=== PATIENT | female | born 1950 | race Caucasian/White ===

== ENCOUNTER 2016-08-30 14:26 | Emergency (ER) | payer MEDICARE, SELFPAY ==
[2016-08-30 14:32] VITALS: BP 144/74
[2016-08-30] MEDS ORDERED: Sodium Chloride 0.9% 10 ML Syringe FLUSH PRN (14:43)
--- NOTE | 2016-08-30 14:52 | EDM.PDOC ---
ED HPI NEURO - General Chief Complaint: Neurological Problem Stated Complaint: SYNCOPE Time Seen by Provider: 08/30/16 14:29 Source of Information: Reports: Patient History Limitations: Reports: No limitations - History of Present Illness INITIAL COMMENTS - FREE TEXT/NARRATIVE: Patient present for evaluation treatment of dizziness and lightheadedness. Patient reports that she was walking down a hallway while at work which became very dizzy, lightheaded and felt very weak in her legs. She states that she did not pass out but felt that she was going to. She reports tunnel vision. She reports several similar episodes the last couple weeks. She states that it is increasing in severity. She reports lightheadedness when standing for long periods of time and walking. She reports that resolves upon sitting. Patient reports that she saw primary care provider about a week and half ago for an upper respiratory infection. She was not placed on antibiotics. She said that she was coughing but this has since improved. She has been using Mucinex for her URI symptoms. She reports that her blood sugar prior to arrival was 288. She is a diabetic on an insulin pump. Her bedside blood sugar today was 177. She reports additional symptoms of shortness of breath with exertion and right leg swelling. She states that she's had swelling to her right leg since having a partial toe amputation several months ago. She denies any chest pain, shortness of breath, nausea, vomiting, tinnitus, ear pain or syncope. - Related Data Allergies/ADRs: Allergies Allergy/AdvReac Type Severity Reaction Status Date / Time erythromycin base Allergy Other Verified 08/30/16 14:28 Home Meds: Home Meds Aspirin [Low Dose Aspirin EC] 162 mg PO DAILY 08/30/16 [History] Furosemide [Furosemide] 20 mg PO DAILY 08/30/16 [History] Insulin Pump. 08/30/16 [History] Levothyroxine. 0.15 mg PO DAILY 08/30/16 [History] Losartan [Cozaar] 50 mg PO DAILY 08/30/16 [History] Pentoxifylline [Pentoxifylline] 400 mg PO DAILY 08/30/16 [History] Sennosides/Docusate Sodium [Senna-Docusate Sodium] 2 tab PO DAILY 08/30/16 [ History] Simvastatin [Simvastatin] 20 mg PO DAILY 08/30/16 [History] ED ROS GENERAL - Review of Systems Review Of Systems: See Below Constitutional: Reports: weakness. Denies: fever, chills HEENT: Reports: Other (denies tinnitus). Denies: Ear pain, Hearing loss Respiratory: Denies: shortness of breath Cardiovascular: Reports: Claudication, Dyspnea on exertion, Edema (left lower leg), Lightheadedness. Denies: Chest pain, Syncope GI/Abdominal: Denies: Abdominal pain, Nausea, Vomiting Neurological: Reports: dizziness. Denies: syncope ED EXAM, NEURO - Physical Exam Exam: See Below Exam Limited By: No limitations General Appearance: alert, WD/WN, no apparent distress Ears: normal external exam, normal canal, hearing grossly normal, normal TMs Nose: normal inspection Throat/Mouth: Normal voice, No airway compromise Neck: normal inspection, supple, non-tender. No: carotid bruit Respiratory/Chest: no respiratory distress, lungs clear, normal breath sounds Cardiovascular: normal peripheral pulses, regular rate, rhythm, no murmur GI/Abdominal: soft, non tender Neurological: alert, normal mood/affect Psychiatric: normal affect, normal mood Skin Exam: Warm, Dry, Normal color EKG INTERPRETATION EKG Date: 08/30/16 Time: 14:50 Rhythm: NSR Rate (beats/min): 77 [place]: normal P-wave: present QRS: normal ST-T: normal QT: normal Comparison: NA - no prior EKG EKG Interpretation Comments: NSR at [address] segment changes. Reviewed by myself and Dr. Lyon. Course - Vital Signs Last Recorded V/S: Last Vital Signs Temp 36.1 C 08/30/16 19:25 Pulse 75 08/30/16 19:25 Resp 18 08/30/16 19:25 BP 144/74 H 08/30/16 14:28 Pulse Ox 99 08/30/16 19:25 Orthostatic Blood Pressure [ 97/54 Standing] Orthostatic Blood Pressure [ 144/65 Supine] - Orders/Labs/Meds Orders: Active Orders 24 hr Category Date Time Status Cardiac Monitoring [RC] . DIRECTED Care 08/30/16 14:47 Active EKG 12 Lead [EKG Documentation Completion] [RC] STAT Care 08/30/16 14:43 Active Orthostatic Vital Signs [RC] ASDIRECTED Care 08/30/16 14:43 Active Peripheral IV Care [RC] . DIRECTED Care 08/30/16 14:43 Active Chest 2V [CR] Stat Exams 08/30/16 14:43 Taken Peripheral IV Insertion Adult [OM.PC] Routine Oth 08/30/16 14:43 Ordered Labs: Laboratory Tests 08/30/16 08/30/16 08/30/16 Range/Units 14:30 14:40 14:40 WBC 9.00 (3.98-10.04) K/mm3 RBC 3.81 L (3.98-5.22) M/mm3 Hgb 11.5 (11.2-15.7) gm/L Hct 34.8 (34.1-44.9) % MCV 91.3 (79.4-94.8) fl MCH 30.2 (25.6-32.2) pg MCHC 33.0 (32.2-35.5) g/dl RDW Std Deviation 42.2 (36.4-46.3) fL Plt Count 282 (182-369) K/mm3 MPV 10.8 (9.4-12.3) fl Neut % (Auto) 61.7 (34.0-71.1) % Lymph % (Auto) 27.1 (19.3-51.7) % [place] % (Auto) 7.3 (4.7-12.5) % Eos % (Auto) 3.2 (0.7-5.8) Baso % (Auto) 0.6 (0.1-1.2) % Neut # 5.55 (1.56-6.13) K/mm3 Lymph # 2.44 (1.18-3.74) K/mm3 Dillon # 0.66 H (0.24-0.36) K/mm3 Eos # 0.29 (0.04-0.36) K/mm3 Baso # 0.05 (0.01-0.08) K/mm3 D-Dimer, Quantitative 0.91 H (0.19-0.59) mg/L Sodium (136-145) mEq/L Potassium (3.5-5.1) mEq/L Chloride (98-107) mEq/L Carbon Dioxide (21-32) mEq/L Anion Gap (5-15) BUN (7-18) mg/dL Creatinine (0.55-1.02) mg/dL Est Cr Clr Drug Dosing mL/min Estimated GFR (MDRD) (>60) mL/min BUN/Creatinine Ratio (14-18) Glucose (80-115) mg/dL POC Glucose 177 H (80-115) mg/dL Calcium (8.5-10.1) mg/dL Total Bilirubin (0.2-1.0) mg/dL AST (15-37) U/L ALT (14-59) U/L Alkaline Phosphatase (46-116) U/L CK-MB (CK-2) (0-3.6) ng/ml Troponin I (0.00-0.056) ng/mL C-Reactive Protein (<1.0) mg/dL B-Natriuretic Peptide (0-100) pg/mL Total Protein (6.4-8.2) g/dl Albumin (3.4-5.0) g/dl Globulin gm/dL Albumin/Globulin Ratio (1-2) Urine Color (Yellow) Urine Appearance (Clear) Urine pH (5.0-8.0) Ur Specific [place] (1.005-1.030) Urine Protein (Negative) Urine Glucose (UA) (Negative) Urine Ketones (Negative) Urine Occult Blood (Negative) Urine Nitrite (Negative) Urine Bilirubin (Negative) Urine Urobilinogen (0.2-1.0) Ur Leukocyte Esterase (Negative) Urine RBC (0-5) /hpf Urine WBC (0-5) /hpf Ur Squamous Epith Cells (0-5) /hpf Urine Bacteria (FEW) /hpf Hyaline Casts (0-5) /lpf Urine Mucus (FEW) /hpf 08/30/16 08/30/16 08/30/16 Range/Units 14:40 14:40 16:49 WBC (3.98-10.04) K/mm3 RBC (3.98-5.22) M/mm3 Hgb (11.2-15.7) gm/L Hct (34.1-44.9) % MCV (79.4-94.8) fl MCH (25.6-32.2) pg MCHC (32.2-35.5) g/dl RDW Std Deviation (36.4-46.3) fL Plt Count (182-369) K/mm3 MPV (9.4-12.3) fl Neut % (Auto) (34.0-71.1) % Lymph % (Auto) (19.3-51.7) % Dillon % (Auto) (4.7-12.5) % Eos % (Auto) (0.7-5.8) Baso % (Auto) (0.1-1.2) % Neut # (1.56-6.13) K/mm3 Lymph # (1.18-3.74) K/mm3 Dillon # (0.24-0.36) K/mm3 Eos # (0.04-0.36) K/mm3 Baso # (0.01-0.08) K/mm3 D-Dimer, Quantitative (0.19-0.59) mg/L Sodium 136 (136-145) mEq/L Potassium 4.2 (3.5-5.1) mEq/L Chloride 100 (98-107) mEq/L Carbon Dioxide 25 (21-32) mEq/L Anion Gap 15.2 H (5-15) BUN 36 H (7-18) mg/dL Creatinine 1.6 H (0.55-1.02) mg/dL Est Cr Clr Drug Dosing 35.36 mL/min Estimated GFR (MDRD) 32 (>60) mL/min BUN/Creatinine Ratio 22.5 H (14-18) Glucose 169 H (80-115) mg/dL POC Glucose (80-115) mg/dL Calcium 9.3 (8.5-10.1) mg/dL Total Bilirubin 0.2 (0.2-1.0) mg/dL AST 14 L (15-37) U/L ALT 21 (14-59) U/L Alkaline Phosphatase 160 H (46-116) U/L CK-MB (CK-2) 0.5 (0-3.6) ng/ml Troponin I < 0.017 (0.00-0.056) ng/mL C-Reactive Protein < 0.2 (<1.0) mg/dL B-Natriuretic Peptide < 15 (0-100) pg/mL Total Protein 7.4 (6.4-8.2) g/dl Albumin 3.4 (3.4-5.0) g/dl Globulin 4.0 gm/dL Albumin/Globulin Ratio 0.9 L (1-2) Urine Color Yellow (Yellow) Urine Appearance Clear (Clear) Urine pH 6.0 (5.0-8.0) Ur Specific [place] 1.015 (1.005-1.030) Urine Protein Negative (Negative) Urine Glucose (UA) Trace H (Negative) Urine Ketones Negative (Negative) Urine Occult Blood Negative (Negative) Urine Nitrite Negative (Negative) Urine Bilirubin Negative (Negative) Urine Urobilinogen 0.2 (0.2-1.0) Ur Leukocyte Esterase Negative (Negative) Urine RBC Not seen (0-5) /hpf Urine WBC 0-5 (0-5) /hpf Ur Squamous Epith Cells 0-5 (0-5) /hpf Urine Bacteria Rare (FEW) /hpf Hyaline Casts 0-5 (0-5) /lpf Urine Mucus Not seen (FEW) /hpf 08/30/16 Range/Units 18:17 WBC (3.98-10.04) K/mm3 RBC (3.98-5.22) M/mm3 Hgb (11.2-15.7) gm/L Hct (34.1-44.9) % MCV (79.4-94.8) fl MCH (25.6-32.2) pg MCHC (32.2-35.5) g/dl RDW Std Deviation (36.4-46.3) fL Plt Count (182-369) K/mm3 MPV (9.4-12.3) fl Neut % (Auto) (34.0-71.1) % Lymph % (Auto) (19.3-51.7) % [place] % (Auto) (4.7-12.5) % Eos % (Auto) (0.7-5.8) Baso % (Auto) (0.1-1.2) % Neut # (1.56-6.13) K/mm3 Lymph # (1.18-3.74) K/mm3 Dillon # (0.24-0.36) K/mm3 Eos # (0.04-0.36) K/mm3 Baso # (0.01-0.08) K/mm3 D-Dimer, Quantitative (0.19-0.59) mg/L Sodium (136-145) mEq/L Potassium (3.5-5.1) mEq/L Chloride (98-107) mEq/L Carbon Dioxide (21-32) mEq/L Anion Gap (5-15) BUN (7-18) mg/dL Creatinine (0.55-1.02) mg/dL Est Cr Clr Drug Dosing mL/min Estimated GFR (MDRD) (>60) mL/min BUN/Creatinine Ratio (14-18) Glucose (80-115) mg/dL POC Glucose (80-115) mg/dL Calcium (8.5-10.1) mg/dL Total Bilirubin (0.2-1.0) mg/dL AST (15-37) U/L ALT (14-59) U/L Alkaline Phosphatase (46-116) U/L CK-MB (CK-2) (0-3.6) ng/ml Troponin I < 0.017 (0.00-0.056) ng/mL C-Reactive Protein (<1.0) mg/dL B-Natriuretic Peptide (0-100) pg/mL Total Protein (6.4-8.2) g/dl Albumin (3.4-5.0) g/dl Globulin gm/dL Albumin/Globulin Ratio (1-2) Urine Color (Yellow) Urine Appearance (Clear) Urine pH (5.0-8.0) Ur Specific [place] (1.005-1.030) Urine Protein (Negative) Urine Glucose (UA) (Negative) Urine Ketones (Negative) Urine Occult Blood (Negative) Urine Nitrite (Negative) Urine Bilirubin (Negative) Urine Urobilinogen (0.2-1.0) Ur Leukocyte Esterase (Negative) Urine RBC (0-5) /hpf Urine WBC (0-5) /hpf Ur Squamous Epith Cells (0-5) /hpf Urine Bacteria (FEW) /hpf Hyaline Casts (0-5) /lpf Urine Mucus (FEW) /hpf Meds: Medications Discontinued Medications Generic Name Dose Route Start Last Admin Trade Name Freq PRN Reason Stop Dose Admin Sodium Chloride 1,000 mls @ 999 mls/hr 08/30/16 15:20 08/30/16 15:35 Normal Saline IV 08/30/16 16:20 999 mls/hr ONETIME ONE Administration Sodium Chloride 100 mls @ 60 mls/hr 08/30/16 16:00 08/30/16 16:34 Normal Saline IV 60 mls/hr ASDIRECTED SHERYL Administration Sodium Chloride 1,000 mls @ 999 mls/hr 08/30/16 17:12 08/30/16 17:22 Normal Saline IV 08/30/16 18:12 999 mls/hr ONETIME ONE Administration Iopamidol 50 ml 08/30/16 15:55 08/30/16 16:34 Isovue-370 (76%) IVPUSH 08/30/16 15:56 50 ml ONETIME ONE Administration Iopamidol 100 ml 08/30/16 15:55 08/30/16 16:34 Isovue-370 (76%) IVPUSH 08/30/16 15:56 100 ml ONETIME ONE Administration Sodium Chloride 10 ml 08/30/16 14:43 08/30/16 15:02 Saline Flush FLUSH 10 ml ASDIRECTED PRN Administration Keep Vein Open Sodium Chloride 10 ml 08/30/16 15:55 08/30/16 16:34 Saline Flush FLUSH 08/30/16 15:56 10 ml ONETIME ONE Administration - Radiology Interpretation Free Text/Narrative:: Chest xray reviewed by myself and Dr. Lyon shows no acute intrathoracic process. CT pulmonary angiogram impression per Dr. Shepard: 1. No findings of PE. 2. Groundglass appearance within both lungs most likely representing subsegmetnal atelectasis although pneumonitis can cause a similar appearance. 3. Other incidental findings as described. CT Results Date: 08/30/16 - Re-Assessments/Exams Free Text/Narrative Re-Assessment/Exam: 08/30/16 17:10 Labs returned. WBC is 9.00, hgb is 11.5 and plts are 282 Sodium is 136, potassium is 4.2 and chloride is 100. Anion gap is 15.2. Glucose is 169 Trop is within normal limits at <0.017 D-dimer elevated at 0.91 - CT pulmonary angiogram ordered to further evaluate. CRP is <0.2 BNP is <15 CKMB is 0.5 Reviewed labs, ekg and imaging with the patient. Will repeat trop and get a 2nd liter NS. continue to monitor. 08/30/16 19:07 Repeat trop is negative at <0.017. Patient is feeling improved after 2 L NS. Reports she has been treated for dehydration before with fluids. Will discharge home at this time. Discharge instructions as documented. Departure - Departure Time of Disposition: 19:07 Disposition: Home, Self-Care 01 Condition: good Clinical Impression: Orthostatic hypotension, Dehydration, mild Instructions: Orthostatic Hypotension, Dehydration, Adult, [id number] Referrals: PCP,Unknown [Ordering Only Provider] - Forms: ED Department Discharge Additional Instructions: Hold lasix tonight. Rest and drink plenty of fluids. Follow-up with PCP this week or next week. Take your time standing, sit or lay down if you are feeling lightheaded of dizzy. Please return to the ER should symptoms change or worsen. - My Orders Last 24 Hours: My Active Orders 08/30/16 14:43 EKG 12 Lead [EKG Documentation Completion] [RC] STAT Orthostatic Vital Signs [RC] ASDIRECTED Peripheral IV Care [RC] . DIRECTED Chest 2V [CR] Stat Peripheral IV Insertion Adult [OM.PC] Routine 08/30/16 14:47 Cardiac Monitoring [RC] . DIRECTED - Assessment/Plan Last 24 Hours: My Active Orders 08/30/16 14:43 EKG 12 Lead [EKG Documentation Completion] [RC] STAT Orthostatic Vital Signs [RC] ASDIRECTED Peripheral IV Care [RC] . DIRECTED Chest 2V [CR] Stat Peripheral IV Insertion Adult [OM.PC] Routine 08/30/16 14:47 Cardiac Monitoring [RC] . DIRECTED
[2016-08-30] MEDS: Sodium Chloride 0.9% 1,000 ML IV ONE ×2 (15:34→15:35)
[2016-08-30] MEDS ORDERED: Sodium Chloride 0.9% 10 ML Syringe FLUSH ONE (15:55)
[2016-08-30] MEDS ORDERED: Iopamidol 755 Mg/ML 100 ML Bottle IVPUSH ONE (15:55)
[2016-08-30] MEDS ORDERED: Iopamidol 755 MG/ML 50 ML Bottle IVPUSH ONE (15:55)
[2016-08-30] MEDS ORDERED: Sodium Chloride 0.9% 100 ML IV SCH (16:00)
--- NOTE | 2016-08-30 16:57 | CT ---
CT chest Technique: Multiple axial sections through the chest were obtained. Intravenous contrast was utilized. Study performed as a pulmonary angiogram protocol. Comparison: No previous chest CT, previous chest x-ray performed earlier on same day. Findings: Pulmonary arteries are moderately well-opacified. No filling defects are identified to indicate pulmonary embolism. No mediastinal or hilar abnormalities are seen. Moderate coronary artery calcification is noted. No pericardial thickening is seen. Visualized upper abdominal structures are unremarkable. Slight atelectasis/scarring is noted within both lung bases. Patchy groundglass appearance is seen within both lungs most likely due to areas of scattered subsegmental atelectasis. No acute infiltrates are seen. Impression: 1. No findings of pulmonary embolism. 2. Groundglass appearance within both lungs most likely representing subsegmental atelectasis although pneumonitis can cause a similar appearance. 3. Other incidental findings as described above. Diagnostic code #2
[2016-08-30] MEDS ORDERED: Sodium Chloride 0.9% 1,000 ML IV ONE (17:12)
--- NOTE | 2016-08-31 08:37 | CR ---
Chest: Two views of the chest were obtained. Comparison: No previous chest x-ray. Heart size and mediastinum are within normal limits. Lungs are clear with no acute infiltrates. Bony structures show minimal scattered degenerative change within the spine. Impression: 1. Nothing acute is identified on two-view chest x-ray. Diagnostic code #2
== END 2016-08-30 19:25 | disposition home or self-care (01) ==
LOC: JD.ED 14:26
DX: E86.0 Dehydration (principal); I95.1 Orthostatic hypotension; R06.02 Shortness of breath; Z88.6 Allergy status to analgesic agent; Z79.82 Long term (current) use of aspirin; Z79.899 Other long term (current) drug therapy
CPT/HCPCS: 36415; 71020; 71020-26; 71275; 71275-26; 80053; 81001; 82553; 82962; 83880; 84484; 85025; 85379; 86140; 87804; 93005; 96360; 96361; 99284; 99285-25; J7030; J7040; J7050; Q9967

== ENCOUNTER 2016-10-28 07:02 | Day surgery (SDC) | payer MEDICARE, SELFPAY ==
[~2016-10-28 07:02] MED LIST: Lactated Ringers 1,000 ML IV SCH; Lidocaine 1%/Sod Bicarbonate in NS 8.4% 1 ML Syringe IV PRN; Sodium Chloride 0.9% 10 ML Syringe FLUSH PRN
[2016-10-28] MEDS ORDERED: Vancomycin 2 GM in Sodium Chloride 0.9% 500 ML IV ONE (07:08)
[2016-10-28] MEDS ORDERED: Lidocaine 1% 50 ML MDV ONE (07:09)
[2016-10-28] MEDS ORDERED: Bupivacaine 0.25% 30 ML SDV ONE (07:09)
[2016-10-28] MEDS ORDERED: Sodium Chloride 0.9% 1,000 ML IV SCH (07:15)
--- NOTE | 2016-10-28 07:21 | PCM.PREANE ---
Preanesthetic Assessment - Anesthesia/Transfusion/Family Hx Anesthesia History: Prior Anesthesia Reaction Type of Anesthesia Reaction: Excessive Nausea/Vomiting Family History of Anesthesia Reaction: No Transfusion History: No Prior Transfusion(s) Intubation History: Unknown - Review of Systems General: Weakness, Fatigue, Malaise Pulmonary: No Symptoms (History of NATHAN at night. COPD with use of albuterol a month ago.) Cardiovascular: No Symptoms (History of A fib, history of orthostatic hypotension, last syncopal episode one month ago due to dehydration, elevated blood pressure noted on occasion currently taking losartan.), Dyspnea on Exertion, Lightheadedness Gastrointestinal: No symptoms (Chronic Kidney disease, occasional GERD), Constipation, Difficulty swallowing Neurological: No Symptoms (restless leg syndrome,), Numbness (diabetic neuropathy's noted in bilateral feet.), Syncope, Weakness, Gait Disturbance ( poor balance noted per patient.) Other: Reports: Diabetes (with insulin pump in place: am blood sugar), Liver Problems (enzymes elevated on occasion per patient.), Thyroid Problems ( hypothyroidism), Depression - Physical Assessment NPO Status Date: 10/27/16 NPO Status Time: 18:00 Pulse: 91 O2 Sat by Pulse Oximetry: 97 Respiratory Rate: 18 Blood Pressure: 161/60 Temperature: 36.7 C Height: 1.73 m Weight: 131.996 kg ASA Class: 3 Mental Status: Alert & Oriented x3 Airway Class: Mallampati = 2 Dentition: Reports: Normal Dentition, [place](s), Caries Thyro-Mental Finger Breadths: 3 Mouth Opening Finger Breadths: 3 ROM/Head Extension: Full Lungs: Clear to auscultation, Normal respiratory effort Cardiovascular: Regular Rate, Regular Rhythm - Lab Values: Labs: (10/27/16) BUN: 30 CR: 1.55 Na: 144 K: 4.6 CL: 105 CO2: 27 10/25/16: wbc=7.8 hgb=11.3 hct=34.3 [id number] History of MRSA with recent swab being negative. - Imaging/EKG Impressions: CXR: cardiac fat pad noted otherwise negative chest noted. EKG: sinus rhythm rate= 77. - Allergies Allergies/Adverse Reactions: Allergies Allergy/AdvReac Type Severity Reaction Status Date / Time erythromycin base Allergy cramps Verified 10/27/16 15:53 - Anesthesia Plan Pre-Op Medication Ordered: None - Acknowledgements Anesthesia Type Planned: MAC Pt an Appropriate Candidate for the Planned Anesthesia: Yes Alternatives and Risks of Anesthesia Discussed w Pt/Guardian: Yes Pt/Guardian Understands and Agrees with Anesthesia Plan: Yes PreAnesthesia Questionnaire HEENT History: Reports: Other (see below) Other HEENT History: retinopathy, laser eye surgery, vitrectomy, wears glasses Cardiovascular History: Reports: Afib, High cholesterol, Hypertension, Other ( see below) Other Cardiovascular History: embolism to extremity, hypotension, poor circulation Respiratory History: Reports: Bronchitis, recurrent, Sleep apnea, Other (see below) Other Respiratory History: cough, dyspnea Gastrointestinal History: Reports: Chronic constipation, Chronic diarrhea, GERD , Other (see below) Other Gastrointestinal History: abdominal pain, dysphagia, gastroparesis, nausea , gastropathy Genitourinary History: Reports: Chronic renal insuffiency, Other (see below) Other Genitourinary History: stress urinary incontinence TALENT ACQUISITION PROJECT MANAGER History: Reports: None Musculoskeletal History: Reports: Other (see below) Other Musculoskeletal History: arthropathy, back contusion, ankle osteomyelitis , claw toe, wrist contusion, coccycx disorder, forearm joint pain, lumbago, hammertoe, restless leg syndrome Neurological History: Reports: Neuropathy, diabetic, Other (see below) Other Neuro History: myoclonus Psychiatric History: Reports: Depression, Other (see below) Other Psychiatric History: malaise, fatigue Endocrine/Metabolic History: Reports: Diabetes, type I, Hypothyroidism, Vitamin D deficiency Hematologic History: Reports: None Immunologic History: Reports: None Oncologic (Cancer) History: Reports: None Dermatologic History: Reports: Cellulitis, Other (see below) Other Dermatologic History: ingrown toenail, onychia of toe, seborrheic keratosis, pilonidal cysts with abcess, skin hypertrophy, foot ulcer - Past Surgical History Head Surgeries/Procedures: Reports: None HEENT Surgical History: Reports: Adenoidectomy, Cataract surgery, Tonsillectomy GI Surgical History: Reports: Colonoscopy Female Surgical History: Reports: section, D&C, Tubal ligation Musculoskeletal Surgical History: Reports: Other (see below) Other Musculoskeletal Surgeries/Procedures:: L 2nd toe amputation - SUBSTANCE USE Smoking Status *Q: Never Smoker Tobacco Use Within Last Twelve Months: No Second Hand Smoke Exposure: No Recreational Drug Use History: No - HOME MEDS Home Medications: Home Meds Albuterol [Ventolin HFA] 1 - 2 puff INH Q4H PRN 10/27/16 [History] Aspirin [Halfprin] 81 mg PO DAILY 10/27/16 [History] Cholecalciferol (Vitamin D3) [Vitamin D3] 1,000 units PO DAILY 10/27/16 [History ] Clindamycin HCl [Cleocin HCl] 300 mg PO TID 10/27/16 [History] Fluticasone/Vilanterol [Breo Ellipta 200-25 Mcg INH] 1 puff INH DAILY 10/27/16 [ History] Furosemide [Furosemide] 20 mg PO DAILY 10/27/16 [History] Gabapentin [Neurontin] 600 mg PO BEDTIME 10/27/16 [History] Insulin Lispro [Humalog] 1 dose SQ ASDIRECTED 10/27/16 [History] Levothyroxine 150 mcg PO DAILY 10/27/16 [History] Losartan [Cozaar] 50 mg PO DAILY 10/27/16 [History] Pentoxifylline [Pentoxifylline] 400 mg PO DAILY 10/27/16 [History] Sennosides/Docusate Sodium [Senna-Docusate Sodium] 2 tab PO DAILY 10/27/16 [ History] Simvastatin [Simvastatin] 40 mg PO DAILY 10/27/16 [History] Sulfamethoxazole/Trimethoprim [Bactrim Ds Tablet] 1 tab PO BID 10/27/16 [History ] Ubidecarenone [Coq-10] 100 mg PO DAILY 10/27/16 [History] Venlafaxine [Effexor XR] 150 mg PO BEDTIME 10/27/16 [History] - CURRENT (IN HOUSE) MEDS Current Meds: Current Medications Vancomycin HCl 2 gm/ Sodium (Chloride) 500 mls @ 250 mls/hr IV ONETIME ONE Stop: 10/28/16 08:59 Sodium Chloride (Normal Saline) 1,000 mls @ 50 mls/hr IV ASDIRECTED SHERYL Sodium Chloride (Saline Flush) 10 ml FLUSH ASDIRECTED PRN PRN Reason: Keep Vein Open Discontinued Medications Lactated Ringer's (Ringers, Lactated) 1,000 mls @ 125 mls/hr IV ASDIRECTED SHERYL Vancomycin HCl 1 gm/ Sodium (Chloride) 250 mls @ 250 mls/hr IV ONETIME ONE Stop: 10/28/16 07:59 Lidocaine/Sodium Bicarbonate (Buffered Lidocaine 1% In Ns 8.4%) 0.25 ml IV ONETIME PRN PRN Reason: Prior to IV Start
[2016-10-28] MEDS ORDERED: Bupivacaine 0.5% 30 ML SDV ONE (07:28)
[2016-10-28] MEDS ORDERED: ceFAZolin 1 GM Vial ONE (08:08)
[2016-10-28] MEDS ORDERED: Propofol 200 MG/20 ML SDV ONE (08:08)
[2016-10-28] MEDS ORDERED: Lidocaine 1% 6 ML ONE (08:08)
[2016-10-28] MEDS ORDERED: Ondansetron 4 MG/2 ML SDV ONE (08:08)
[2016-10-28] MEDS ORDERED: fentaNYL 100 MCG/2 ML SDV ONE (08:09)
[2016-10-28] MEDS ORDERED: Midazolam 1 MG/ML 2 ML SDV ONE (08:09)
[2016-10-28] MEDS ORDERED: fentaNYL 100 MCG/2 ML SDV IVPUSH PRN (08:29)
[2016-10-28] MEDS ORDERED: Ondansetron 4 MG/2 ML SDV IVPUSH PRN (08:29)
[2016-10-28] MEDS ORDERED: Phenylephrine 1 MG in Sodium Chloride 0.9% 10 ML IV SCH (08:30)
[2016-10-28] MEDS ORDERED: Phenylephrine/Normal Saline 100 MCG/ML 10 ML Syringe ONE (08:33)
--- NOTE | 2016-10-28 09:04 | PCM48HPAN ---
Post Anesthesia Note - EVALUATION WITHIN 48HRS OF ANESTHETIC Vital Signs in Normal Range: Yes Patient Participated in Evaluation: Yes Respiratory Function Stable: Yes Airway Patent: Yes Cardiovascular Function Stable: Yes Hydration Status Stable: Yes Pain Control Satisfactory: Yes Nausea and Vomiting Control Satisfactory: Yes Mental Status Recovered: Yes - COMMENTS/OBSERVATIONS Free Text/Narrative:: Patient awake and conversing appropriately. Patient denies any pain or discomfort. Patient expresses satisfaction with sedation level.
--- NOTE | 2016-10-28 09:12 | PCM.OPNOTE ---
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 2.) Cellulitis, RIGHT 2nd toe. 3.) Gangrene, RIGHT 2nd toe Post-Op Diagnosis: Same Anesthesia Technique: Local (10ccs 1:1 mixture of 1% Lidocaine pl. + 0.5% Marcaine pl.), MAC Primary Surgeon: Miguel Horton II Anesthesia Provider: Rosa Cast Pathology: Right 2nd toe EBL in mLs: 5 Complications: None Condition: Good Free Text/Narrative:: Patient left the OR for PACU, with her vital signs stable & vascular status grossly intact to digits 1-5 RIGHT foot.
[2016-10-28 09:58] VITALS: BP 131/47
--- NOTE | 2016-10-28 14:33 | OR ---
DATE OF OPERATION: 10/28/2016 SURGEON: Miguel Horton II, DPM LOCATION: [facility]. ANESTHESIA: MAC with local infiltrative block about the right second toe. ANESTHESIA PROVIDER: Rosa Cast CRNA. HEMOSTASIS: Right pneumatic ankle tourniquet at 250 mmHg. PREOPERATIVE DIAGNOSIS: 1. Painful and symptomatic diabetic ulcer, right second toe. 2. Symptomatic cellulitis, right second toe. 3. Painful symptomatic gangrene, right second toe. POSTOPERATIVE DIAGNOSIS: 1. Painful and symptomatic diabetic ulcer, right second toe. 2. Symptomatic cellulitis, right second toe. 3. Painful symptomatic gangrene, right second toe. OPERATION PERFORMED: Amputation of right second toe to the level of the metatarsophalangeal joint. DESCRIPTION OF PROCEDURE: Upon arrival and admission to the hospital, the patient was examined and cleared for surgery by the assigned anesthesia provider. IV access was obtained in the preoperative area, and the patient was given prophylactic antibiotics consisting of 3 grams of Ancef IV piggyback. The patient was then brought to the OR via gurney and transferred to the operating table in supine position. The patient was given a combination of sedations and was adequately sedated before receiving 10 mL of 1:1 mixture of 1% lidocaine plain and 0.5% Marcaine plain in the form of local infiltrative block about the right second toe at the level of the metatarsophalangeal joint. Anesthesia was tested and found to be adequate. Right lower extremity was wrapped with cotton Webril padding above the ankle joint in preparation for nonsterile pneumatic ankle tourniquet, which was then draped with a sterile drape. Right lower extremity was then prepped and draped in the usual aseptic manner. Right lower extremity was then elevated and exsanguinated with the use of an Esmarch bandage before inflating the right pneumatic ankle tourniquet to 250 mmHg. The Esmarch bandage was removed. Right lower extremity was placed back to the level of the operating room table. Attention was then directed to the right second toe, which was noted to have dark black soft tissue progressing beyond the proximal interphalangeal joint and the most lateral margin of the toe. The gangrenous soft tissue changes were advancing to the level of the MTPJ. A dorsal and plantar fishmouth incision was planned and executed over the right second toe at the level of the webspace both medially and laterally. This was a controlled-depth skin incision with care taken to retract any vital neurovascular structures within the area as well as to cauterize and/or ligate superficial bleeders as deemed necessary. Continuous soft tissue dissection was taken down through the teno-capsular structures to the level of the base of the proximal phalanx to allow for adequate soft tissue closure. The right second toe was disarticulated at the metatarsophalangeal joint. This right second toe was then sent to pathology for gross and microscopic evaluation. The wound site was then swabbed with aerobic and anaerobic cultures. There was no evidence of any purulent drainage from the area. The head of the right second metatarsal about its articular cartilage was resected with a power sagittal saw from dorsal to plantar. The wound was then copiously lavaged with sterile saline solution. The closure was then undertaken of the deep subcuticular layer with 4-0 Vicryl while the skin was reapproximated with 4-0 Prolene. The bone of the right second toe was sent to pathology for gross and microscopic evaluation. An additional 10 mL of 0.5% Marcaine plain were injected about the operatory site of the right foot. Upon completion of the surgery, but prior to completion of the suture closure, the right pneumatic ankle tourniquet was deflated. It was noted that digits 1 through 5 of the right foot became pink indicating normal vascular perfusion had returned to the distal most aspect. The patient appeared to tolerate the procedure and anesthesia well and left the OR for recovery with her vital signs being stable and vascular status intact to digits 1 through 5 of the right foot with no apparent complications. In Recovery, the patient received written and oral postop instructions as well as postoperative pain medication. She will resume taking her preoperative antibiotics. The patient will ambulate partial weightbearing with a postoperative shoe that she received prior to the surgery, and she will wear that at all times, weightbearing about her right foot and ankle. Estimated blood loss for this procedure was 5 mL and considered negligible. There were no apparent obvious complications. ESTIMATED BLOOD LOSS: MMODAL /[id number]
== END 2016-10-28 10:37 | disposition home or self-care (01) ==
LOC: JD.SDS 07:02
PROVIDERS: ATTEND Podiatrist Foot & Ankle Surgery
PROC: 0Y6R0Z0 Detachment at Right 2nd Toe, Complete, Open Approach (ICD-10-PCS; principal; 2016-10-28)
DX: E10.621 Type 1 diabetes mellitus with foot ulcer (principal); L97.519 Non-pressure chronic ulcer of other part of right foot with unspecified severity; L03.031 Cellulitis of right toe; E10.52 Type 1 diabetes mellitus with diabetic peripheral angiopathy with gangrene; J20.9 Acute bronchitis, unspecified; I48.91 Unspecified atrial fibrillation; F32.9 Major depressive disorder, single episode, unspecified; E10.22 Type 1 diabetes mellitus with diabetic chronic kidney disease; I12.9 Hypertensive chronic kidney disease with stage 1 through stage 4 chronic kidney disease, or unspecified chronic kidney disease; N18.9 Chronic kidney disease, unspecified; E10.43 Type 1 diabetes mellitus with diabetic autonomic (poly)neuropathy; K31.84 Gastroparesis; E78.5 Hyperlipidemia, unspecified; E03.9 Hypothyroidism, unspecified; G25.81 Restless legs syndrome; K21.9 Gastro-esophageal reflux disease without esophagitis; G47.33 Obstructive sleep apnea (adult) (pediatric); Z86.14 Personal history of Methicillin resistant Staphylococcus aureus infection; Z86.718 Personal history of other venous thrombosis and embolism; Z98.41 Cataract extraction status, right eye; Z98.42 Cataract extraction status, left eye; Z98.51 Tubal ligation status; Z98.890 Other specified postprocedural states; Z79.4 Long term (current) use of insulin; Z79.82 Long term (current) use of aspirin; Z79.899 Other long term (current) drug therapy; Z88.1 Allergy status to other antibiotic agents
CPT/HCPCS: 28820; 82962; 87075; 87205; 88304; J0690; J2250; J2405; J3010; J3370; J7040; 01480; 88305; 88305-26; 88311; 88311-26; J2704; J3490

== ENCOUNTER 2017-12-23 21:31 | Emergency (ER) | payer MEDICARE ==
[2017-12-23 21:43] VITALS: BP 147/60
--- NOTE | 2017-12-23 21:55 | EDM.PDOC ---
ED HPI GENERAL MEDICAL PROBLEM - General Chief Complaint: Chest Pain Stated Complaint: chest pain Time Seen by Provider: 12/23/17 21:54 Source of Information: Reports: Patient History Limitations: Reports: No Limitations - History of Present Illness INITIAL COMMENTS - FREE TEXT/NARRATIVE: 67-year-old female who is a known insulin-dependent diabetic for 50 years presents to the ED with fleeting chest pains primarily right anterior chest but also left upper anterior chest and rating to her left arm. This started within the last hour. The rest the day has been pretty normal for her. She is short of breath on minimal exertion. She is moderately obese. Diabetes is controlled with insulin pump and NovoLog subcutaneously as needed for elevated blood sugars. She reports that she had a large myocardial infarction about a month ago. Is unclear how this time no cyst was made. In any rate she is scheduled for cardiology review next week with suspect likely need for an angiogram. She' s had 2 angiograms in the past. They did not show any significant disease. The last one was about 15 years ago however. She has severe peripheral vascular disease. The complicated by diabetic no neuropathy. She's had both second toes amputated left partial right complete. She is currently on Trent[place]. She appreciates passed a little more short of breath today. She also appreciated that moving her arms seemed to make the pain a little bit worse suggesting muscular skeletal in origin. Fleeting and nothing has stayed. The longest left upper anterior chest pain lasted about 5 minutes. ECG done by triage nurse reveals sinus rhythm at 95/m. There is evidence of left atrial hypertrophy pattern. There is evidence of a near Q-wave in V1 and V3 suggestive of a possible old anteroseptal myocardial infarction. There is poor R-wave progression. There is Q-wave in lead 3 and aVF compatible with old inferior wall myocardial infarction with associated T-wave inversion. There are no changes in the baseline at this time that would suggest ischemia. There is left axis deviation of -13. Abnormal ECG. Onset: Today Onset Date: 12/23/17 Duration: Minutes: (Longest the pain lasted was about 5 minutes left upper precordial chest and into her left shoulder.) Location: Reports: Chest Quality: Reports: Ache, Sharp, Stabbing Severity: Moderate Improves with: Reports: Other Worsens with: Reports: Movement (movement) Context: Denies: Activity, Exercise, Lifting, Sick Contact, Trauma, Other Associated Symptoms: Reports: Shortness of Breath. 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: Other (see below) Chest Pain Score (Numeric/FACES): 0 - Related Data Allergies Allergy/AdvReac Type Severity Reaction Status Date / Time erythromycin base Allergy cramps Verified 12/23/17 21:43 Home Meds: Home Meds Albuterol [Ventolin HFA] 1 - 2 puff INH Q4H PRN 10/27/16 [History] Aspirin [Halfprin] 81 mg PO DAILY 10/27/16 [History] Cholecalciferol (Vitamin D3) [Vitamin D3] 1,000 units PO DAILY 10/27/16 [History ] Clindamycin HCl [Cleocin HCl] 300 mg PO TID 10/27/16 [History] Fluticasone/Vilanterol [Breo Ellipta 200-25 Mcg INH] 1 puff INH DAILY 10/27/16 [ History] Furosemide 20 mg PO DAILY 10/27/16 [History] Gabapentin [Neurontin] 600 mg PO BEDTIME 10/27/16 [History] Insulin Lispro [Humalog] 1 dose SQ ASDIRECTED 10/27/16 [History] Levothyroxine 150 mcg PO DAILY 10/27/16 [History] Losartan [Cozaar] 50 mg PO DAILY 10/27/16 [History] Pentoxifylline 400 mg PO DAILY 10/27/16 [History] Sennosides/Docusate Sodium [Senna-Docusate Sodium] 2 tab PO DAILY 10/27/16 [ History] Simvastatin 40 mg PO DAILY 10/27/16 [History] Sulfamethoxazole/Trimethoprim [Bactrim Ds Tablet] 1 tab PO BID 10/27/16 [History ] Ubidecarenone [Coq-10] 100 mg PO DAILY 10/27/16 [History] Venlafaxine [Effexor XR] 150 mg PO BEDTIME 10/27/16 [History] Furosemide [Lasix] 40 mg PO DAILY #30 tab 12/24/17 [Rx] Past Medical History HEENT History: Reports: Other (See Below) Other HEENT History: retinopathy, laser eye surgery, vitrectomy, wears glasses Cardiovascular History: Reports: Afib, High Cholesterol, Hypertension, [place], Other (See Below) Other Cardiovascular History: embolism to extremity, hypotension, poor circulation Respiratory History: Reports: Bronchitis, Recurrent, Sleep Apnea, Other (See Below) Other Respiratory History: cough, dyspnea Gastrointestinal History: Reports: Chronic Constipation, Chronic Diarrhea, GERD , Other (See Below) Other Gastrointestinal History: abdominal pain, dysphagia, gastroparesis, nausea , gastropathy Genitourinary History: Reports: Chronic Renal Insuffiency, Other (See Below) Other Genitourinary History: stress urinary incontinence PLANT MACHINIST History: Reports: None Musculoskeletal History: Reports: Other (See Below) Other Musculoskeletal History: arthropathy, back contusion, ankle osteomyelitis , claw toe, wrist contusion, coccycx disorder, forearm joint pain, lumbago, hammertoe, restless leg syndrome Neurological History: Reports: Neuropathy, Diabetic, Other (See Below) Other Neuro History: myoclonus Psychiatric History: Reports: Depression, Other (See Below) Other Psychiatric History: malaise, fatigue Endocrine/Metabolic History: Reports: Diabetes, Type I (Diabetes has been complicated by diabetic retinopathy was need for laser treatments due to retinal hemorrhages. Known renal insufficiency. Peripheral vascular disease.), Hypothyroidism, Obesity/BMI 30+, Vitamin D Deficiency Hematologic History: Reports: None Immunologic History: Reports: None Oncologic (Cancer) History: Reports: None Dermatologic History: Reports: Cellulitis, Other (See Below) Other Dermatologic History: ingrown toenail, onychia of toe, seborrheic keratosis, pilonidal cysts with abcess, skin hypertrophy, foot ulcer - Past Surgical History Head Surgeries/Procedures: Reports: None HEENT Surgical History: Reports: Adenoidectomy, Cataract Surgery, Tonsillectomy Female Surgical History: Reports: Section, D&C, Tubal Ligation Musculoskeletal Surgical History: Reports: Other (See Below) Social & Family History - Tobacco Use Smoking Status *Q: Never Smoker - Caffeine Use Caffeine Use: Reports: Soda - Recreational Drug Use Recreational Drug Use: No - Living Situation & Occupation Living situation: Reports: Occupation: Retired ED ROS GENERAL - Review of Systems Review Of Systems: See Below Constitutional: Reports: Fatigue. Denies: Fever, Chills, Malaise, Weakness, Weight Loss (Chronically) HEENT: Reports: No Symptoms Respiratory: Reports: Shortness of Breath, Cough (Chronic severe cough. Coughs until she brings up a small quantity of mucus quite often.). Denies: Wheezing ( Chronically on minimal exertion perhaps a little worse today.), Pleuritic Chest Pain, Sputum, Hemoptysis Cardiovascular: Reports: Chest Pain, Blood Pressure Problem (See history of present illness), Dyspnea on Exertion (Worse recently.), Lightheadedness ( BP tends to run very low. Often gets lightheaded dizzy when she stands--). Denies : Claudication, Edema, Orthopnea, Palpitations (Chronically) Endocrine: Reports: Fatigue GI/Abdominal: Reports: Constipation (Some heartburn symptoms tonight. She often will take Zantac for this.), Other. Denies: Bloody Stool, Diarrhea, Decreased Appetite, Difficulty Swallowing, Hematemesis, Hematochezia, Nausea, Stool Incontinence, Vomiting : Reports: Frequency, Incontinence (Stress and urge components.) Musculoskeletal: Reports: Back Pain, Joint Pain (Knees hips and neck at times.) Skin: Reports: No Symptoms Neurological: Reports: Other (Has peripheral neuropathy in both lower extremities.) Psychiatric: Reports: No Symptoms Hematologic/Lymphatic: Reports: No Symptoms Immunologic: Reports: No Symptoms ED EXAM, GENERAL - Physical Exam Exam: See Below Exam Limited By: No Limitations General Appearance: Alert, WD/WN, No Apparent Distress Eye Exam: Bilateral Eye: Normal Inspection Head: Atraumatic, Normocephalic Neck: Normal Inspection, Full Range of Motion. No: Lymphadenopathy (L), Lymphadenopathy (R) Respiratory/Chest: Lungs Clear, Normal Breath Sounds, No Accessory Muscle Use, Chest Non-Tender, Other (Could not as listed any chest wall tenderness on palpation of the anterior ribs or posterior rib heads.). No: Crackles, Rales, Rhonchi, Wheezing Cardiovascular: Regular Rate, Rhythm, No Edema, No Gallop, No Murmur, No Rub. No: JVD Peripheral Pulses: 1+: Posterior Tibial (L) (Both feet are warm to touch.), Posterior Tibial (R), Dorsalis Pedis (L), Dorsalis Pedis (R) GI/Abdominal: Normal Bowel Sounds, Soft, Non-Tender, No Organomegaly, Other ( Moderately obese.) Back Exam: Normal Inspection, Full Range of Motion. No: CVA Tenderness (L), CVA Tenderness (R) Extremities: Normal Inspection, Normal Range of Motion, Non-Tender, No Pedal Edema Neurological: Alert, Oriented, CN II-XII Intact, Normal Cognition, Normal Gait Psychiatric: Normal Affect, Normal Mood Skin Exam: Warm, Dry, Normal Color, No Rash EKG INTERPRETATION EKG Date: 12/23/17 Time: 19:40 Rhythm: NSR Rate (Beats/Min): 95 [place]: LAD-Left [place] Deviation (-13) P-Wave: Enlarged (Evidence of left atrial hypertrophy.) QRS: Other (There is a near Q-wave in V1 and V3. This is possibly suggestive of an anterior septal myocardial infarction in the past. There is also Q waves leads 3 and aVF with T-wave inversion suggestive of an old inferior wall myocardial infarction.) ST-T: Other (Wondering baseline in leads V1 and V2 make it difficult to analyze the ST segment but I do not believe there is any signs of ischemia on this ECG) QT: Normal EKG Interpretation Comments: Abnormal ECG. No signs of ischemia Course - Vital Signs Last Recorded V/S: Last Vital Signs Temp 36.4 C 12/23/17 21:38 Pulse 98 12/23/17 21:38 Resp 20 12/23/17 21:38 BP 147/60 H 12/23/17 21:38 Pulse Ox 96 12/24/17 00:38 - Orders/Labs/Meds Orders: Active Orders 24 hr Category Date Time Status EKG Documentation Completion [RC] STAT Care 12/23/17 22:07 Active RT Aerosol Therapy [RC] ASDIRECTED Care 12/24/17 00:23 Active Chest 1V Frontal [CR] Stat Exams 12/23/17 22:06 Taken Chest PE [Ang Chest] [CT] Stat Exams 12/24/17 00:15 Taken Sodium Chloride 0.9% [Normal Saline] 1,000 ml Med 12/24/17 00:30 Active IV ASDIRECTED Sodium Chloride 0.9% [Normal Saline] 100 ml Med 12/24/17 00:45 Active IV ASDIRECTED Sodium Chloride 0.9% [Saline Flush] Med 12/24/17 00:41 Active 10 ml FLUSH ONETIME PRN Medication Orders Sodium Chloride (Normal Saline) 1,000 mls @ 100 mls/hr IV ASDIRECTED SHERYL Sodium Chloride (Normal Saline) 100 mls @ 75 mls/hr IV ASDIRECTED SHERYL Last Admin: 12/24/17 01:04 Dose: 75 mls/hr Sodium Chloride (Saline Flush) 10 ml FLUSH ONETIME PRN PRN Reason: IV FLUSH Last Admin: 12/24/17 01:04 Dose: 10 ml Labs: Laboratory Tests 12/23/17 12/23/17 12/23/17 Range/Units 22:20 22:20 22:20 WBC 10.51 H (3.98-10.04) K/mm3 RBC 3.63 L (3.98-5.22) M/mm3 Hgb 10.8 L (11.2-15.7) gm/L Hct 33.2 L (34.1-44.9) % MCV 91.5 (79.4-94.8) fl MCH 29.8 (25.6-32.2) pg MCHC 32.5 (32.2-35.5) g/dl RDW Std Deviation 42.0 (36.4-46.3) fL Plt Count 244 (182-369) K/mm3 MPV 10.7 (9.4-12.3) fl Neutrophils % (Manual) 74 H (40-60) % Band Neutrophils % 0 (0-10) % Lymphocytes % (Manual) 20 (20-40) % Atypical Lymphs % 0 % Monocytes % (Manual) 1 L (2-10) % Eosinophils % (Manual) 1 (0.7-5.8) % Basophils % (Manual) 0 L (0.1-1.2) Myelocytes % 1 Promyelocytes % 3 Platelet Estimate Adequate Plt Morphology Comment Normal RBC Morph Comment Normal PT 10.6 (9.5-12.1) SECONDS INR 0.97 D-Dimer, Quantitative (0.19-0.50) mg/L Sodium 133 L (136-145) mEq/L Potassium 5.0 (3.5-5.1) mEq/L Chloride 98 (98-107) mEq/L Carbon Dioxide 25 (21-32) mEq/L Anion Gap 15.0 (5-15) BUN 32 H (7-18) mg/dL Creatinine 1.4 H (0.55-1.02) mg/dL Est Cr Clr Drug Dosing 39.87 mL/min Estimated GFR (MDRD) 38 (>60) mL/min BUN/Creatinine Ratio 22.9 H (14-18) Glucose 370 H (80-115) mg/dL Calcium 9.1 (8.5-10.1) mg/dL Magnesium 1.7 L (1.8-2.4) mg/dl Total Bilirubin 0.2 (0.2-1.0) mg/dL AST 30 (15-37) U/L ALT 24 (14-59) U/L Alkaline Phosphatase 157 H (46-116) U/L CK-MB (CK-2) 1.0 (0-3.6) ng/ml Troponin I < 0.017 (0.00-0.056) ng/mL C-Reactive Protein 1.6 H* (<1.0) mg/dL NT-Pro-B Natriuret Pep (0-125) pg/mL Total Protein 6.7 (6.4-8.2) g/dl Albumin 2.6 L (3.4-5.0) g/dl Globulin 4.1 gm/dL Albumin/Globulin Ratio 0.6 L (1-2) 12/23/17 12/23/17 12/24/17 Range/Units 22:20 22:20 01:50 WBC (3.98-10.04) K/mm3 RBC (3.98-5.22) M/mm3 Hgb (11.2-15.7) gm/L Hct (34.1-44.9) % MCV (79.4-94.8) fl MCH (25.6-32.2) pg MCHC (32.2-35.5) g/dl RDW Std Deviation (36.4-46.3) fL Plt Count (182-369) K/mm3 MPV (9.4-12.3) fl Neutrophils % (Manual) (40-60) % Band Neutrophils % (0-10) % Lymphocytes % (Manual) (20-40) % Atypical Lymphs % % Monocytes % (Manual) (2-10) % Eosinophils % (Manual) (0.7-5.8) % Basophils % (Manual) (0.1-1.2) Myelocytes % Promyelocytes % Platelet Estimate Plt Morphology Comment RBC Morph Comment PT (9.5-12.1) SECONDS INR D-Dimer, Quantitative 1.53 H (0.19-0.50) mg/L Sodium (136-145) mEq/L Potassium (3.5-5.1) mEq/L Chloride (98-107) mEq/L Carbon Dioxide (21-32) mEq/L Anion Gap (5-15) BUN (7-18) mg/dL Creatinine (0.55-1.02) mg/dL Est Cr Clr Drug Dosing mL/min Estimated GFR (MDRD) (>60) mL/min BUN/Creatinine Ratio (14-18) Glucose (80-115) mg/dL Calcium (8.5-10.1) mg/dL Magnesium (1.8-2.4) mg/dl Total Bilirubin (0.2-1.0) mg/dL AST (15-37) U/L ALT (14-59) U/L Alkaline Phosphatase (46-116) U/L CK-MB (CK-2) 1.0 (0-3.6) ng/ml Troponin I < 0.017 (0.00-0.056) ng/mL C-Reactive Protein (<1.0) mg/dL NT-Pro-B Natriuret Pep 752 H (0-125) pg/mL Total Protein (6.4-8.2) g/dl Albumin (3.4-5.0) g/dl Globulin gm/dL Albumin/Globulin Ratio (1-2) Meds: Medications Generic Name Dose Route Start Last Admin Trade Name Freq PRN Reason Stop Dose Admin Sodium Chloride 1,000 mls @ 100 mls/hr 12/24/17 00:30 Normal Saline IV ASDIRECTED SHERYL Sodium Chloride 100 mls @ 75 mls/hr 12/24/17 00:45 12/24/17 01:04 Normal Saline IV 75 mls/hr ASDIRECTED SHERYL Administration Sodium Chloride 10 ml 12/24/17 00:41 12/24/17 01:04 Saline Flush FLUSH 10 ml ONETIME PRN Administration IV FLUSH Discontinued Medications Generic Name Dose Route Start Last Admin Trade Name Freq PRN Reason Stop Dose Admin Al Hydroxide/Mg Hydroxide 30 ml 12/23/17 22:08 12/23/17 23:57 Mag-Al Plus PO 12/23/17 22:09 30 ml ONETIME ONE Administration Albuterol/Ipratropium 3 ml 12/24/17 00:23 12/24/17 00:37 Duoneb 3.0-0.5 Mg/3 Ml NEB 12/24/17 00:24 3 ml ONETIME ONE Administration Aspirin 324 mg 12/23/17 22:06 12/23/17 22:19 Aspirin PO 12/23/17 22:07 324 mg ONETIME ONE Administration Iopamidol 50 ml 12/24/17 00:41 12/24/17 01:04 Isovue-370 (76%) IVPUSH 12/24/17 00:42 50 ml ONETIME ONE Administration Iopamidol 100 ml 12/24/17 00:41 12/24/17 01:04 Isovue-370 (76%) IVPUSH 12/24/17 00:42 50 ml ONETIME ONE Administration - Radiology Interpretation Free Text/Narrative:: 67-year-old female who is an insulin-dependent diabetic for almost 50 years presents the ED with fleeting anterior chest pains. They were both on the right and left side of her chest. They can come as twinges which suggests musculoskeletal origin. The worst pain was left precordial chest radiating to her left shoulder lasting approximate 5 minutes at the longest. This of course is made her quite anxious. She was told she had a heart attack about a month ago. She is to see the shell reprint operator next week. She's had previous angiography but not for 15 years. She is currently treated with an insulin pump with good control of her blood sugars. She uses NovoLog when necessary for elevated sugars are with meals at times. Her blood pressure is 99/51. She will therefore not tolerate nitro drip and she is pain-free at this time. Given aspirin 324 mg chewed. A block placed. Routine labs including cardiac markers will be done. Also a d-dimer. Her O2 sats are 99% on room air. Patient does have peripheral neuropathy in both lower extremities and known severe peripheral vascular disease. She's had her right second toe amputated in the left second toe partially amputated due to vascular occlusion. Of note she is currently not on any antiplatelet medications. - Re-Assessments/Exams Free Text/Narrative Re-Assessment/Exam: 12/23/17 22:31 cChest x-ray reveals a poor inspirational view. Also pannus obstructs the lower lung wolf. Cardiac silhouette is normal in size. There is mild tortuosity of the thoracic aorta. There is the impression of diffuse mild vascular congestion which may be due to portable technique and poor inspirational view. 12/23/17 23:32 lab reports have been delayed apparently due to problems with the analyzer in the lab. Ensure that they can even provide a BNP tonight. Her diagnosis hinges on this test as I clinically believe she is in congestive heart failure which is likely because of her atypical chest pains and dyspnea on exertion. The d-dimer is mildly elevated likely again due to elevated BNP. None of the chemistry is yet available and unclear when it may be available. 12/24/17 00:14 Part of the labs are now back. Total white count is 10.51 with 74 % neutrophils and no bands reported. Hemoglobin is slightly low at 10.8 with hematocrit of 33.2. MCV is normal at 91.5. Telemetry count is normal 244,000. PT is 10.6 with an INR of 0.97. D-dimer is 1.53 mildly elevated. Serum sodium is slightly low at 133. Potassium is 5.0. Thyroid is 98 with a bicarbonate of 25. Anion gap is 15.0. BUN is 32. Creatinine is 1.4. GFR is 38 a stage III chronic kidney disease. Glucose is 370. Calcium is 9.1. Magnesium is 1.7. Liver function is normal. Alk phosphatase slightly elevated at 157. CK-MB fraction is 1.0 with troponin I of less than 0.017. C-reactive protein is 1.6. Albumin fraction is slightly low at 2.6. BNP is not available. Kidney function is not the best that we can proceed with CT pulmonary angiogram to rule out PE at this time. 12/24/17 00:24 is currently coughing and feels like she has phlegm stuck in her throat. Will provide her with a DuoNeb to see if this will help loosen her secretions. 12/24/17 01:09 mushroom laborer called and indicated that there was some problem with the liver transaminases assessment with her analyzer. He has revised the current numbers but they are still within the normal range. Currently he is working on the BNP. 12/24/17 01:[address] pulmonary angiogram. She does appear to have diffuse vascular congestion but there are no pleural effusions. No evidence of a pulmonary embolism is identified. Will have repeat cardiac markers done to rule out cardiac injury or infarction. Still awaiting BNP. 12/24/17 02:14 BNP is now back and is mildly elevated at 752. Normal for her is up to 125. Will await her repeat cardiac markers. Also CT has not yet returned from [facility]. 12/24/17 02:[address] pulmonary angiogram reveals no pulmonary emboli. They feel the cardiac size is normal with no pericardial effusion. No pleural effusion. There is mild bile lateral bibasilar atelectasis. Waiting for her second troponin CK-MB values to return. It appears that her major problem is mild congestive failure. She does take furosemide 20 mg daily and mirtazapine alone every other day 2.5 mg. 12/24/17 02:49 second set of cardiac markers have returned in the normal range as well with a troponin of less than 0.017. He said no further chest pain since he's been in the ED. BT increase her Lasix to 40 mg once daily every morning using metaxalone every other day as she has been doing. Departure - Departure Time of Disposition: 02:50 Disposition: Home, Self-Care 01 Condition: Fair Clinical Impression: Non-cardiac chest pain Congestive heart failure (CHF) Qualifiers: Heart failure type: diastolic Heart failure chronicity: unspecified Qualified Code(s): I50.30 - Unspecified diastolic (congestive) heart failure Prescriptions: Furosemide [Lasix] 40 mg PO DAILY #30 tab Referrals: Venkatesh Green MD [Primary Care Provider] - Forms: ED Department Discharge Additional Instructions: Evaluation the emergency room tonight which was very extensive. Development of fleeting chest pains or twinges of chest pains both right and left upper anterior chest with the longest period of pain lasting 5 or 6 minutes left upper anterior chest. Unfortunately due to Natalie Tory analyzer problems it took a substantial period of time to obtain your lab results. Initial cardiac markers looking for heart attack proved to be negative and they were repeated some 3-1/2 hours later and proved to be negative once again. D-dimer came back elevated at 1.[address] pulmonary and gram was carried out to rule out any blood clots in the lungs and none were identified by radiologist . The labs did take a substantial period of time to come back with a BNP which is a measuring stick of all well left ventricle dysfunction functioning. It identified that there is an accumulation of fluid within your lungs considered moderate. BNP was 752 with normal being up to 125. Is likely the cause of your chest pains. Is also likely the cause of your paroxysmal and judgment are coughing and shortness of breath on minimal exertion. Suggest increasing your Lasix or furosemide to 40 mg once daily every morning. Three-step on the scale and marked on your weight for the next week to 10 days so that we can identify that you're actually losing some fluid weight. Usually metaxalone as previously directed. Follow-up with shell reprint operator next week as planned. - My Orders Last 24 Hours: My Active Orders 12/23/17 22:06 Chest 1V Frontal [CR] Stat 12/23/17 22:07 EKG Documentation Completion [RC] STAT 12/24/17 00:15 Chest PE [Ang Chest] [CT] Stat 12/24/17 00:23 RT Aerosol Therapy [RC] ASDIRECTED 12/24/17 00:30 Sodium Chloride 0.9% [Normal Saline] 1,000 ml IV ASDIRECTED 12/24/17 00:41 Sodium Chloride 0.9% [Saline Flush] 10 ml FLUSH ONETIME PRN 12/24/17 00:45 Sodium Chloride 0.9% [Normal Saline] 100 ml IV ASDIRECTED - Assessment/Plan Last 24 Hours: My Active Orders 12/23/17 22:06 Chest 1V Frontal [CR] Stat 12/23/17 22:07 EKG Documentation Completion [RC] STAT 12/24/17 00:15 Chest PE [Ang Chest] [CT] Stat 12/24/17 00:23 RT Aerosol Therapy [RC] ASDIRECTED 12/24/17 00:30 Sodium Chloride 0.9% [Normal Saline] 1,000 ml IV ASDIRECTED 12/24/17 00:41 Sodium Chloride 0.9% [Saline Flush] 10 ml FLUSH ONETIME PRN 12/24/17 00:45 Sodium Chloride 0.9% [Normal Saline] 100 ml IV ASDIRECTED
[2017-12-23] MEDS ORDERED: Aspirin 81 MG Tab.Chew PO ONE (22:06)
[2017-12-23] MEDS ORDERED: Aluminum Hydroxide/Magnesium Hydroxide/Simethicone Susp 30 ML Cup PO ONE (22:08)
[2017-12-24] MEDS ORDERED: Albuterol/Ipratropium 3.0-0.5 MG/3 ML Neb Soln NEB ONE (00:23)
[2017-12-24] MEDS ORDERED: Sodium Chloride 0.9% 1,000 ML IV SCH (00:30)
[2017-12-24] MEDS ORDERED: Iopamidol 755 MG/ML 50 ML Bottle IVPUSH ONE (00:41)
[2017-12-24] MEDS ORDERED: Iopamidol 755 Mg/ML 100 ML Bottle IVPUSH ONE (00:41)
[2017-12-24] MEDS ORDERED: Sodium Chloride 0.9% 10 ML Syringe FLUSH PRN (00:41)
[2017-12-24] MEDS ORDERED: Sodium Chloride 0.9% 100 ML IV SCH (00:45)
--- NOTE | 2017-12-25 07:07 | CR ---
Chest: Portable view of the chest was obtained. Comparison: Prior chest x-ray of 08/30/16. Heart size and mediastinum are normal. Lungs are clear without acute parenchymal change. Bony structures are grossly intact. Impression: 1. Nothing acute is seen on portable chest x-ray. Diagnostic code #1
--- NOTE | 2017-12-25 07:07 | CT ---
CT chest Technique: Multiple axial sections through the chest were obtained. Intravenous contrast was not utilized. Comparison: Previous chest CT study of 08/30/16. Findings: Pulmonary arteries are moderately well-opacified. No filling defects are seen to indicate pulmonary embolism. Coronary artery calcification is noted. Mediastinal lymph nodes are seen which are felt to be within normal limits. Small portion of the visualized upper abdominal structures are within normal limits. Areas of scarring is seen within both lung bases. Patchy ground-glass appearance is seen which is stable from prior exam compatible with mild fibrosis. No acute parenchymal change is seen. Bone window settings were reviewed which show no acute osseous abnormality. Mild degenerative change is noted within the spine. Impression: 1. No findings of pulmonary embolism. 2. Areas of scarring within both lung bases. Ground-glass appearance is seen which appears stable from prior chest CT which is felt compatible with fibrosis. 3. Nothing acute is appreciated. Diagnostic code #2 I agree with preliminary report issued by [facility] ([facility] preliminary report dictated on 12/24/17, 3:25 AM Central Time)
== END 2017-12-24 03:05 | disposition home or self-care (01) ==
LOC: JD.ED 21:31
DX: I13.0 Hypertensive heart and chronic kidney disease with heart failure and stage 1 through stage 4 chronic kidney disease, or unspecified chronic kidney disease (principal); I50.30 Unspecified diastolic (congestive) heart failure; N18.9 Chronic kidney disease, unspecified; E10.22 Type 1 diabetes mellitus with diabetic chronic kidney disease; E10.42 Type 1 diabetes mellitus with diabetic polyneuropathy; E78.00 Pure hypercholesterolemia, unspecified; I25.2 Old myocardial infarction; K21.9 Gastro-esophageal reflux disease without esophagitis; E03.9 Hypothyroidism, unspecified; E10.319 Type 1 diabetes mellitus with unspecified diabetic retinopathy without macular edema; Z88.1 Allergy status to other antibiotic agents; Z79.82 Long term (current) use of aspirin; Z79.899 Other long term (current) drug therapy
CPT/HCPCS: 36415; 71045; 71275; 80053; 82553; 83735; 83880; 84484; 85007; 85027; 85379; 85610; 86140; 93005; 94640; 96360; 96361; 99285; A9270; J7030; J7050; Q9967; 93010; 99284-25

== ENCOUNTER 2019-10-18 10:42 | Emergency (ER) | payer MEDICARE ==
[2019-10-18] MEDS ORDERED: Ondansetron 4 MG/2 ML SDV IVPUSH ONE (11:32)
[2019-10-18] MEDS ORDERED: Sodium Chloride 0.9% 10 ML Syringe FLUSH PRN (11:32)
[2019-10-18] MEDS ORDERED: Sodium Chloride 0.9% 1,000 ML IV SCH (11:45)
--- NOTE | 2019-10-18 12:26 | EDM.PDOC ---
ED HPI GENERAL MEDICAL PROBLEM - General Chief Complaint: General Stated Complaint: [facility] Time Seen by Provider: 10/18/19 11:09 Source of Information: Reports: Patient, RN Notes Reviewed - History of Present Illness INITIAL COMMENTS - FREE TEXT/NARRATIVE: 69 yr old female has had difficulty with dizziness, lightheadedness for the past several days. Has been having diarrha, nausea and also running high blood sugars as well with readings 4 to 600 2 and 3 days ago. No abd pain, has had some dry heaves but no vomiting. Mouth feels very dry. States she passed out once yesterday when standing and walking. - Related Data Allergies Allergy/AdvReac Type Severity Reaction Status Date / Time erythromycin base Allergy cramps Verified 10/18/19 10:54 lisinopril Allergy Cough Verified 10/18/19 10:54 Home Meds: Home Meds Albuterol Sulfate [Proventil Hfa] 2 puff IH Q4H PRN 03/26/18 [History] Aspirin 325 mg PO DAILY 03/26/18 [History] Cholecalciferol (Vitamin D3) [Vitamin D] 1,000 units PO DAILY 03/26/18 [History] Furosemide [Lasix] 40 mg PO ASDIRECTED 03/26/18 [History] Gabapentin [Neurontin] 600 mg PO BEDTIME 03/26/18 [History] Insulin Degludec [Tresiba Flextouch U-200] 14 unit SQ DAILY 03/26/18 [History] Insulin Lispro [HumaLOG] 60 unit INJECT ASDIRECTED 03/26/18 [History] Levothyroxine 150 mcg PO DAILY 03/26/18 [History] Linaclotide [Linzess] 290 mcg PO DAILY 03/26/18 [History] Metoprolol Tartrate [Lopressor] 25 mg PO DAILY 03/26/18 [History] Pentoxifylline [TRENtal] 400 mg PO DAILY 03/26/18 [History] Sennosides [Senokot] 8.6 mg PO ASDIRECTED PRN 03/26/18 [History] Ubidecarenone [COQ-10] 1 tab PO DAILY 03/26/18 [History] Venlafaxine [Effexor XR] 150 mg PO DAILY 03/26/18 [History] Rosuvastatin Calcium 40 mg PO DAILY 10/18/19 [History] Topiramate 250 mg PO BID 10/18/19 [History] Past Medical History HEENT History: Reports: Other (See Below) Other HEENT History: retinopathy, laser eye surgery, vitrectomy, wears glasses Cardiovascular History: Reports: Afib, High Cholesterol, Hypertension, CT, Other (See Below) Other Cardiovascular History: embolism to extremity, hypotension, poor circulation, Cabagex4 Respiratory History: Reports: Bronchitis, Recurrent, Other (See Below), Sleep Apnea Other Respiratory History: cough, dyspnea Gastrointestinal History: Reports: Chronic Constipation, Chronic Diarrhea, GERD , Other (See Below) Other Gastrointestinal History: abdominal pain, dysphagia, gastroparesis, nausea , gastropathy Genitourinary History: Reports: Chronic Renal Insuffiency, Other (See Below) Other Genitourinary History: stress urinary incontinence STOCK HANDLER History: Reports: None Musculoskeletal History: Reports: Amputation, Arthritis, Other (See Below) Other Musculoskeletal History: arthropathy, back contusion, ankle osteomyelitis , claw toe, wrist contusion, coccycx disorder, forearm joint pain, hammertoe, restless leg syndrome Neurological History: Reports: Neuropathy, Diabetic, Other (See Below) Other Neuro History: myoclonus Psychiatric History: Reports: Depression, Other (See Below) Other Psychiatric History: malaise, fatigue Endocrine/Metabolic History: Reports: Diabetes, Type I, Hypothyroidism, Obesity/ BMI 30+, Vitamin D Deficiency Hematologic History: Reports: None Immunologic History: Reports: None Oncologic (Cancer) History: Reports: None Dermatologic History: Reports: Cellulitis, Other (See Below) Other Dermatologic History: ingrown toenail, onychia of toe, seborrheic keratosis, pilonidal cysts with abcess, skin hypertrophy, foot ulcer - Past Surgical History Head Surgeries/Procedures: Reports: None HEENT Surgical History: Reports: Adenoidectomy, Cataract Surgery, Tonsillectomy Female Surgical History: Reports: Section, D&C, Tubal Ligation Musculoskeletal Surgical History: Reports: Other (See Below) Social & Family History - Family History Family Medical History: Noncontributory - Tobacco Use Smoking Status *Q: Never Smoker - Caffeine Use Caffeine Use: Reports: Soda Other Caffeine Use: 2 cans diet cola daily - Recreational Drug Use Recreational Drug Use: No - Living Situation & Occupation Living situation: Reports: Occupation: Retired [employer] GENERAL - Review of Systems Review Of Systems: See Below Constitutional: Denies: Fever, Chills HEENT: Denies: Rhinitis, Sinus Problem, Throat Pain Respiratory: Denies: Shortness of Breath, Pleuritic Chest Pain, Cough Cardiovascular: Denies: Chest Pain GI/Abdominal: Reports: Abdominal Pain (gone), Diarrhea, Nausea. Denies: Hematemesis, Hematochezia, Melena, Vomiting Musculoskeletal: Reports: No Symptoms Neurological: Reports: Dizziness. Denies: Numbness, Tingling, Weakness ED EXAM, GENERAL - Physical Exam Exam: See Below General Appearance: Alert, No Apparent Distress Throat/Mouth: Other (oral mucosa very dry) Head: Atraumatic Neck: Supple Respiratory/Chest: No Respiratory Distress, Lungs Clear, Normal Breath Sounds Cardiovascular: Regular Rate, Rhythm GI/Abdominal: Soft, Non-Tender. No: Guarding Extremities: No: Pedal Edema Neurological: Alert, Oriented, No Motor/Sensory Deficits Skin Exam: Warm, Dry, Normal Color Course - Vital Signs Last Recorded V/S: Last Vital Signs Temp 98.4 F 10/18/19 13:52 Pulse 76 10/18/19 13:52 Resp 18 10/18/19 10:46 BP 140/73 10/18/19 13:52 Pulse Ox 98 10/18/19 13:52 - Orders/Labs/Meds Orders: Active Orders 24 hr Category Date Time Status POC Glucose [Blood Glucose Check, Bedside] [RC] ONETIME Care 10/18/19 11:31 Active Peripheral IV Care [RC] . DIRECTED Care 10/18/19 11:32 Active Peripheral IV Insertion Adult [OM.PC] Stat Oth 10/18/19 11:31 Ordered Labs: Laboratory Tests 10/18/19 10/18/19 Range/Units 12:00 12:00 WBC 7.08 (3.98-10.04) K/mm3 RBC 3.93 L (3.98-5.22) M/mm3 Hgb 11.9 (11.2-15.7) gm/dl Hct 36.5 (34.1-44.9) % MCV 92.9 (79.4-94.8) fl MCH 30.3 (25.6-32.2) pg MCHC 32.6 (32.2-35.5) g/dl RDW Std Deviation 42.1 (36.4-46.3) fL Plt Count 215 (182-369) K/mm3 MPV 11.3 (9.4-12.3) fl Neut % (Auto) 72.9 H (34.0-71.1) % Lymph % (Auto) 16.2 L (19.3-51.7) % [place] % (Auto) 7.3 (4.7-12.5) % Eos % (Auto) 3.2 (0.7-5.8) Baso % (Auto) 0.3 (0.1-1.2) % Neut # (Auto) 5.15 (1.56-6.13) K/mm3 Lymph # (Auto) 1.15 L (1.18-3.74) K/mm3 [place] # (Auto) 0.52 H (0.24-0.36) K/mm3 Eos # (Auto) 0.23 (0.04-0.36) K/mm3 Baso # (Auto) 0.02 (0.01-0.08) K/mm3 Sodium 135 L (136-145) mEq/L Potassium 4.2 (3.5-5.1) mEq/L Chloride 103 (98-107) mEq/L Carbon Dioxide 24 (21-32) mEq/L Anion Gap 12.2 (5-15) BUN 39 H (7-18) mg/dL Creatinine 1.3 H (0.55-1.02) mg/dL Est Cr Clr Drug Dosing 41.78 mL/min Estimated GFR (MDRD) 41 (>60) mL/min BUN/Creatinine Ratio 30.0 H (14-18) Glucose 425 H (80-115) mg/dL Calcium 8.6 (8.5-10.1) mg/dL Total Bilirubin 0.3 (0.2-1.0) mg/dL AST 22 (15-37) U/L ALT 22 (14-59) U/L Alkaline Phosphatase 148 H (46-116) U/L Total Protein 6.5 (6.4-8.2) g/dl Albumin 2.7 L (3.4-5.0) g/dl Globulin 3.8 gm/dL Albumin/Globulin Ratio 0.7 L (1-2) Meds: Medications Discontinued Medications Generic Name Dose Route Start Last Admin Trade Name Freq PRN Reason Stop Dose Admin Sodium Chloride 1,000 mls @ 999 mls/hr 10/18/19 11:45 10/18/19 11:47 Normal Saline IV 999 mls/hr ONETIME SHERYL Administration Insulin Human Regular 10 unit 10/18/19 13:23 10/18/19 13:45 Humulin R SUBCUT 10/18/19 13:24 10 unit ONETIME ONE Administration Protocol Ondansetron HCl 4 mg 10/18/19 11:32 10/18/19 11:47 Zofran IVPUSH 10/18/19 11:33 4 mg ONETIME ONE Administration Sodium Chloride 10 ml 10/18/19 11:32 10/18/19 11:47 Saline Flush FLUSH 10 ml ASDIRECTED PRN Administration Keep Vein Open - Re-Assessments/Exams Free Text/Narrative Re-Assessment/Exam: 10/18/19 15:46 glucose moderately high, 425, labs otherwise nl, have given 1 liter NS, 10 units insulin, discharge instr. as documented. Departure - Departure Time of Disposition: 14:05 Disposition: Home, Self-Care 01 Condition: Fair Clinical Impression: Syncope, Hyperglycemia - Discharge Information Instructions: Syncope, [id number] Referrals: Venkatesh Green MD [Primary Care Provider] - Forms: ED Department Discharge Additional Instructions: Drink plenty of water to maintain hydration. Watch glucose carefully, bring that down with sliding scale insulin as needed. Return to ED as needed if symptoms worsening in any way. Sepsis Event Note - Evaluation Sepsis Screening Result: No Definite Risk - Focused Exam Vital Signs: Vital Signs Temp Pulse Resp BP Pulse Ox 10/18/19 13:52 98.4 F 76 140/73 98 10/18/19 10:46 96.7 F L 68 18 91/64 100 Date Exam was Performed: 10/18/19 Time Exam was Performed: 15:46 - My Orders Last 24 Hours: My Active Orders 10/18/19 11:31 POC Glucose [Blood Glucose Check, Bedside] [RC] ONETIME Peripheral IV Insertion Adult [OM.PC] Stat 10/18/19 11:32 Peripheral IV Care [RC] . DIRECTED - Assessment/Plan Last 24 Hours: My Active Orders 10/18/19 11:31 POC Glucose [Blood Glucose Check, Bedside] [RC] ONETIME Peripheral IV Insertion Adult [OM.PC] Stat 10/18/19 11:32 Peripheral IV Care [RC] . DIRECTED
[2019-10-18] MEDS ORDERED: Insulin Regular, Human 100 Units/ML 3 ML Vial SUBCUT ONE (13:23)
[2019-10-18 14:17] VITALS: BP 140/73; PULSE 76
== END 2019-10-18 14:20 | disposition home or self-care (01) ==
LOC: JD.ED 10:42
DX: E10.65 Type 1 diabetes mellitus with hyperglycemia (principal); R55 Syncope and collapse; I10 Essential (primary) hypertension; E78.00 Pure hypercholesterolemia, unspecified; I48.91 Unspecified atrial fibrillation; I25.2 Old myocardial infarction; M19.90 Unspecified osteoarthritis, unspecified site; F32.9 Major depressive disorder, single episode, unspecified; E03.9 Hypothyroidism, unspecified; E66.9 Obesity, unspecified; Z68.42 Body mass index [BMI] 45.0-49.9, adult; Z88.1 Allergy status to other antibiotic agents; Z88.8 Allergy status to other drugs, medicaments and biological substances; Z79.82 Long term (current) use of aspirin; Z79.899 Other long term (current) drug therapy
CPT/HCPCS: 36415; 80053; 85025; 96361; 96374; 99284; J1815; J2405; J7030; 99283

== ENCOUNTER 2020-03-30 01:11 | Emergency (ER) | payer MEDICARE, MEDICAID ==
[2020-03-30] MEDS ORDERED: HYDROmorphone 0.5 MG/0.5 ML Syringe IVPUSH ONE (01:23)
[2020-03-30] MEDS ORDERED: Ondansetron 4 MG/2 ML SDV IVPUSH ONE (01:24)
--- NOTE | 2020-03-30 01:29 | EDM.PDOC ---
ED HPI GENERAL MEDICAL PROBLEM - General Chief Complaint: Lower Extremity Injury/Pain Stated Complaint: [facility] Time Seen by Provider: 03/30/20 01:12 Source of Information: Reports: Patient History Limitations: Reports: No Limitations - History of Present Illness INITIAL COMMENTS - FREE TEXT/NARRATIVE: 69-year-old female presents to the ED per [facility]. She reports that she remembers getting up from bed and going out to the living room. She then sat on the couch for period of time and when she got up she made it as far as the kitchen door and then awoke on the floor. She states she has a history of autonomic nervous system dysfunction related to chronic type 1 diabetes mellitus. She states she can often become very dizzy and faint. H owever this time she was unable to get up on her own volition due to severe pain and obvious deformity to her left ankle. She also feels pain in her right posterior tib-fib and ankle. Paramedics arrived to find her left ankle obviously deformed. She was alert and oriented and able to answer all questions. Her blood sugars are controlled with an insulin pump for about 8 to 9 years. She reports the highest sugar she obtained yesterday was 250. Paramedics got a blood sugar greater than 450 or as high as they are monitor can register. Patient has a history of coronary disease requiring bypass surgery x4 vessels 3 years ago. History of mild congestive failure. History of obesity. History of bilateral peripheral neuropathy in her lower extremities. Medics have not administered any medication. Patient does not feel she hurt her head in any way. She has no pain or deformity in her head or neck. Denies any pain in her chest or back. Denies any pain in her upper extremities. Her left leg is in a pillow type splint ,placed by paramedics. History of peripheral vascular disease with claudication. Onset: Today, Sudden Onset Date: 03/30/20 Onset Time: 00:30 Duration: Minutes: Location: Reports: Lower Extremity, Left, Lower Extremity, Right Quality: Reports: Ache Severity: Moderate Improves with: Reports: Rest Worsens with: Reports: Movement Context: Reports: Trauma (Couple event at home tonight likely due to orthostatic hypotension causing her to fall to the floor unresponsive for a unknown length of time. Obvious injury to the left ankle with lateral rotation. Swelling right lateral ankle and complaints of pain posterior right calf.). Denies: Activity, Exercise, Lifting, Sick Contact Associated Symptoms: Reports: Malaise, Shortness of Breath, Weakness. 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: Other (see below) (No recent increase in any of her medications.) - Related Data Allergies Allergy/AdvReac Type Severity Reaction Status Date / Time erythromycin base Allergy cramps Verified 03/30/20 01:16 lisinopril Allergy Cough Verified 03/30/20 01:16 Home Meds: Home Meds Albuterol Sulfate [Proventil Hfa] 2 puff IH Q4H PRN 03/26/18 [History] Aspirin 325 mg PO DAILY 03/26/18 [History] Cholecalciferol (Vitamin D3) [Vitamin D] 3,000 units PO DAILY 03/26/18 [History] Furosemide [Lasix] 40 mg PO DAILY PRN 03/26/18 [History] Insulin Lispro [HumaLOG] 60 unit INJECT ASDIRECTED 03/26/18 [History] Levothyroxine 150 mcg PO DAILY 03/26/18 [History] Linaclotide [Linzess] 290 mcg PO MOWEFR 03/26/18 [History] Metoprolol Tartrate [Lopressor] 25 mg PO DAILY 03/26/18 [History] Pentoxifylline [TRENtal] 400 mg PO DAILY 03/26/18 [History] Sennosides [Senokot] 8.6 mg PO ASDIRECTED PRN 03/26/18 [History] Venlafaxine [Effexor XR] 150 mg PO DAILY 03/26/18 [History] Rosuvastatin Calcium 40 mg PO DAILY 10/18/19 [History] Topiramate 250 mg PO BID 10/18/19 [History] Past Medical History HEENT History: Reports: Other (See Below) Other HEENT History: retinopathy, laser eye surgery, vitrectomy, wears glasses Cardiovascular History: Reports: Afib, Bypass (Quadruple bypass performed 4 years ago after myocardial infarction.), CAD, High Cholesterol, Hypertension, AL, PVD, Other (See Below) Other Cardiovascular History: embolism to extremity, hypotension, poor circulation, Cabagex4 Respiratory History: Reports: Bronchitis, Recurrent, Other (See Below), Sleep Apnea Other Respiratory History: cough, dyspnea Gastrointestinal History: Reports: Chronic Constipation, Chronic Diarrhea, GERD, Other (See Below) Other Gastrointestinal History: abdominal pain, dysphagia, gastroparesis, nausea, gastropathy Genitourinary History: Reports: Chronic Renal Insuffiency, Other (See Below) Other Genitourinary History: stress urinary incontinence 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 Controlled with insulin pump x8 to 9 years.), Hypothyroidism (On levothyroxine 150 mcg by mouth daily.), Obesity/BMI 30+, Vitamin D Deficiency Hematologic History: Reports: None Immunologic History: Reports: None Oncologic (Cancer) History: Reports: None Dermatologic History: Reports: Cellulitis, Other (See Below) Other Dermatologic History: ingrown toenail, onychia of toe, seborrheic keratosis, pilonidal cysts with abcess, skin hypertrophy, foot ulcer - Past Surgical History Head Surgeries/Procedures: Reports: None HEENT Surgical History: Reports: Adenoidectomy, Cataract Surgery, Tonsillectomy Female Surgical History: Reports: Section (x 1.), D&C, Tubal Ligation Musculoskeletal Surgical History: Reports: Other (See Below) (Amputation Rt second toe about 3 years ago before open heart surgery . Toe turned black.) Social & Family History - Family History Family Medical History: Noncontributory - Caffeine Use Caffeine Use: Reports: Soda Other Caffeine Use: 2 cans diet cola daily - Living Situation & Occupation Living situation: Reports: Occupation: Retired Review of Systems - Review of Systems Review Of Systems: See Below Constitutional: Reports: Weakness. Denies: Chills, Diaphoresis, Fever, Other Eyes: Reports: Glasses, Other (For reading. Does have decreased visual acuity.) Ears: Reports: No Symptoms Nose: Reports: No Symptoms Mouth/Throat: Reports: No Symptoms Respiratory: Reports: Shortness of Breath. Denies: Wheezing, Pleuritic Chest Pain, Cough, Sputum Cardiovascular: Reports: Edema (While both lower extremities.), Lightheadedness, Syncope (He states frequent syncopal episodes occur when she gets up too fast due to autonomic nervous system dysfunction and orthostatic hypotension.). Denies: Chest Pain GI/Abdominal: Reports: Constipation. Denies: Abdominal Pain, Bloody Stool, Decreased Appetite, Diarrhea (Neck issues with constipation.), Hematemesis, Nausea, Vomiting Genitourinary: Reports: Other (Samson frequency with occasional incontinence of a urge component.) Musculoskeletal: Reports: Back Pain, Joint Pain (His hips lower back neck) Skin: Reports: Bruising ( and shoulders at times.), Other (Chronic dry skin.) Neurological: Reports: Dizziness (When episodes of dizziness which is secondary to orthostatic hypotension which is believed to have an autonomic nervous system dysfunction due to chronic diabetes.), Numbness, Tingling (With lower extremities with evidence of diabetic peripheral neuropathy from ankles to knees.), Difficulty Walking, Weakness. Denies: Confusion, Change in Speech Psychiatric: Reports: Depression, Anxiety ED EXAM, GENERAL - Physical Exam Exam: See Below Exam Limited By: No Limitations General Appearance: Alert, WD/WN, Mild Distress, Other (Temperature is 36.1. Heart rate 64 and sinus respiratory 16 with O2 sats of 97% room air BP 149/54.) Eye Exam: Bilateral Eye: Normal Inspection, PERRL Throat/Mouth: Other Head: Atraumatic (Tongue is mildly dry and coated. No injuries to the dentition or her tongue.), Normocephalic, Other (No outward signs of any head or facial trauma.) Neck: Normal Inspection, Supple, Non-Tender, Full Range of Motion, Other (She has full unopposed range of motion of her cervical spine.). No: Carotid Bruit, Lymphadenopathy (L), Lymphadenopathy (R) Respiratory/Chest: No Respiratory Distress, Lungs Clear, No Accessory Muscle Use, Decreased Breath Sounds (Creased breath sounds appreciated both posterior lung wolf by 25%). No: Rales, Rhonchi, Wheezing Cardiovascular: No Gallop, No Murmur, No Rub, Other (Well-healed midline sternotomy incision with slight keloid formation.). No: Normal Peripheral Pulses Peripheral Pulses: 0: Posterior Tibial (L), Posterior Tibial (R), Dorsalis Pedis (L), Dorsalis Pedis (R), 2+: Carotid (L), Carotid (R) GI/Abdominal: Normal Bowel Sounds, Soft, Non-Tender, No Organomegaly, No Mass, Pelvis Stable, Other (Patient is morbidly obese. This limits ability to palpate solid organs) Back Exam: Normal Inspection, Full Range of Motion, Other (Patient did get dizzy lightheaded with sitting her up.). No: CVA Tenderness (L), CVA Tenderness (R) Extremities: Other (Patient has an obvious external rotation of her left ankle with suspect bimalleolar fracture. Clinically decreased pulses to both feet compatible with peripheral vascular disease. She has marked swelling of the lateral aspect of her right ankle. Pain with attempts to dorsiflex or plantarflex her right ankle. Pain in her right calf distal leg posteriorly. There is early ecchymosis developing left lateral and medial ankle.) Neurological: Alert, Oriented, CN II-XII Intact, Normal Cognition, Other (History is bilateral significant peripheral neuropathy in lower extremities from foot to knee.) Psychiatric: Normal Affect, Normal Mood Skin Exam: Warm, Dry, Rash (She has multiple superficial skin infections over both upper and lower extremities but particularly on both lower extremities. This is best called a folliculitis. There is an area of superficial ulceration with scab formation over lesion left lower lateral proximal leg. Strongly suspect diffuse staph aureus infection of the skin. A MRSA nasal screen has been ordered), Other (And intertrigo both inguinal areas.) EKG INTERPRETATION EKG Date: 03/30/20 Time: 01:34 Rhythm: Other (Occasional PVCs.) Rate (Beats/Min): 65 Shoshone: LAD-Left Shoshone Deviation (Mild left axis deviation of -14 degrees.) P-Wave: Present QRS: Other (There is decreased voltage precordial leads. Prominent R wave in lead I consider left ventricular hypertrophy.) ST-T: Other (Diffuse T wave inversion from V3 to V6 consider anterior septal ischemia. Is also T wave inversion in leads II, III and aVF consider inferior wall ischemia.) QT: Normal EKG Interpretation Comments: Abnormal ECG Course - Vital Signs Last Recorded V/S: Last Vital Signs Temp 36.1 C 03/30/20 01:12 Pulse 64 03/30/20 01:12 Resp 16 03/30/20 01:12 BP 149/54 H 03/30/20 01:12 Pulse Ox 97 03/30/20 01:12 - Orders/Labs/Meds Orders: Active Orders 24 hr Category Date Time Status EKG Documentation Completion [RC] STAT Care 03/30/20 01:24 Active Oxygen Therapy [RC] ASDIRECTED Care 03/30/20 01:26 Active Ankle Min 3V Lt [CR] Stat Exams 03/30/20 01:28 Taken Ankle Min 3V Rt [CR] Stat Exams 03/30/20 01:28 Taken Chest 1V Frontal [CR] Stat Exams 03/30/20 01:24 Taken Head wo Cont [CT] Stat Exams 03/30/20 01:25 Taken Tibia Fibula Lt [CR] Stat Exams 03/30/20 01:27 Taken Tibia Fibula Rt [CR] Stat Exams 03/30/20 01:27 Taken GLUCOSE RANDOM [CHEM] Stat Lab 03/30/20 03:30 Received Insulin Regular, Human [HumuLIN R] 100 unit Med 03/30/20 02:45 Active Sodium Chloride 0.9% [Normal Saline] 99 ml IV ASDIRECTED Sodium Chloride 0.9% [Normal Saline] 1,000 ml Med 03/30/20 04:00 Ordered IV ASDIRECTED Medication Orders Insulin Human Regular 100 unit (/ Sodium Chloride) 100 mls @ 5 mls/hr IV ASDIRECTED [facility]; Protocol Last Admin: 03/30/20 03:20 Dose: 5 unit/hr, 5 mls/hr Documented by: JOHN Cosigned by: BRYN Sodium Chloride (Normal Saline) 1,000 mls @ 500 mls/hr IV ASDIRECTED [facility] Labs: Laboratory Tests 03/30/20 03/30/20 03/30/20 Range/Units 01:45 01:45 01:45 WBC 7.11 (3.98-10.04) K/mm3 RBC 4.23 (3.98-5.22) M/mm3 Hgb 12.7 (11.2-15.7) gm/dl Hct 38.6 (34.1-44.9) % MCV 91.3 D (79.4-94.8) fl MCH 30.0 (25.6-32.2) pg MCHC 32.9 (32.2-35.5) g/dl RDW Std Deviation 40.5 (36.4-46.3) fL Plt Count 225 D (182-369) K/mm3 MPV 11.5 (9.4-12.3) fl Neut % (Auto) 69.3 (34.0-71.1) % Lymph % (Auto) 20.0 (19.3-51.7) % Barren % (Auto) 7.7 (4.7-12.5) % Eos % (Auto) 2.5 (0.7-5.8) Baso % (Auto) 0.4 (0.1-1.2) % Neut # (Auto) 4.92 (1.56-6.13) K/mm3 Lymph # (Auto) 1.42 (1.18-3.74) K/mm3 Barren # (Auto) 0.55 H (0.24-0.36) K/mm3 Eos # (Auto) 0.18 (0.04-0.36) K/mm3 Baso # (Auto) 0.03 (0.01-0.08) K/mm3 ESR (0-20) mm/hr PT 10.6 (9.7-11.7) SECONDS INR 0.99 APTT 23 (22-31) SECONDS Sodium 131 L (136-145) mEq/L Potassium 4.8 (3.5-5.1) mEq/L Chloride 97 L (98-107) mEq/L Carbon Dioxide 27 (21-32) mEq/L Anion Gap 11.8 (5-15) BUN 34 H (7-18) mg/dL Creatinine 1.7 H (0.55-1.02) mg/dL Est Cr Clr Drug Dosing 31.95 mL/min Estimated GFR (MDRD) 30 (>60) mL/min BUN/Creatinine Ratio 20.0 H (14-18) Glucose 620 H* (80-115) mg/dL Hemoglobin A1c (4.50-6.20) % Calcium 8.8 (8.5-10.1) mg/dL Magnesium 2.0 (1.8-2.4) mg/dl Total Bilirubin 0.3 (0.2-1.0) mg/dL AST 20 (15-37) U/L ALT 23 (14-59) U/L Alkaline Phosphatase 156 H (46-116) U/L CK-MB (CK-2) 0.8 (0-3.6) ng/ml Troponin I < 0.017 (0.00-0.056) ng/mL C-Reactive Protein 1.4 H* (<1.0) mg/dL NT-Pro-B Natriuret Pep (0-125) pg/mL Total Protein 6.8 (6.4-8.2) g/dl Albumin 2.7 L (3.4-5.0) g/dl Globulin 4.1 gm/dL Albumin/Globulin Ratio 0.7 L (1-2) Urine Color (Yellow) Urine Appearance (Clear) Urine pH (5.0-8.0) Ur Specific [place] (1.005-1.030) Urine Protein (Negative) Urine Glucose (UA) (Negative) Urine Ketones (Negative) Urine Occult Blood (Negative) Urine Nitrite (Negative) Urine Bilirubin (Negative) Urine Urobilinogen (0.2-1.0) Ur Leukocyte Esterase (Negative) Urine RBC (0-5) /hpf Urine WBC (0-5) /hpf Ur Epithelial Cells (0-5) /hpf Urine Bacteria (FEW) /hpf Urine Mucus (FEW) /hpf Ketones (0.0-0.3) mM SARS-CoV-2 RNA (SAVANNA) (NEGATIVE) 03/30/20 03/30/20 03/30/20 Range/Units 01:45 01:45 01:45 WBC (3.98-10.04) K/mm3 RBC (3.98-5.22) M/mm3 Hgb (11.2-15.7) gm/dl Hct (34.1-44.9) % MCV (79.4-94.8) fl MCH (25.6-32.2) pg MCHC (32.2-35.5) g/dl RDW Std Deviation (36.4-46.3) fL Plt Count (182-369) K/mm3 MPV (9.4-12.3) fl Neut % (Auto) (34.0-71.1) % Lymph % (Auto) (19.3-51.7) % Barren % (Auto) (4.7-12.5) % Eos % (Auto) (0.7-5.8) Baso % (Auto) (0.1-1.2) % Neut # (Auto) (1.56-6.13) K/mm3 Lymph # (Auto) (1.18-3.74) K/mm3 Barren # (Auto) (0.24-0.36) K/mm3 Eos # (Auto) (0.04-0.36) K/mm3 Baso # (Auto) (0.01-0.08) K/mm3 ESR 50 H (0-20) mm/hr PT (9.7-11.7) SECONDS INR APTT (22-31) SECONDS Sodium (136-145) mEq/L Potassium (3.5-5.1) mEq/L Chloride (98-107) mEq/L Carbon Dioxide (21-32) mEq/L Anion Gap (5-15) BUN (7-18) mg/dL Creatinine (0.55-1.02) mg/dL Est Cr Clr Drug Dosing mL/min Estimated GFR (MDRD) (>60) mL/min BUN/Creatinine Ratio (14-18) Glucose (80-115) mg/dL Hemoglobin A1c (4.50-6.20) % Calcium (8.5-10.1) mg/dL Magnesium (1.8-2.4) mg/dl Total Bilirubin (0.2-1.0) mg/dL AST (15-37) U/L ALT (14-59) U/L Alkaline Phosphatase (46-116) U/L CK-MB (CK-2) (0-3.6) ng/ml Troponin I (0.00-0.056) ng/mL C-Reactive Protein (<1.0) mg/dL NT-Pro-B Natriuret Pep 305 H (0-125) pg/mL Total Protein (6.4-8.2) g/dl Albumin (3.4-5.0) g/dl Globulin gm/dL Albumin/Globulin Ratio (1-2) Urine Color (Yellow) Urine Appearance (Clear) Urine pH (5.0-8.0) Ur Specific [place] (1.005-1.030) Urine Protein (Negative) Urine Glucose (UA) (Negative) Urine Ketones (Negative) Urine Occult Blood (Negative) Urine Nitrite (Negative) Urine Bilirubin (Negative) Urine Urobilinogen (0.2-1.0) Ur Leukocyte Esterase (Negative) Urine RBC (0-5) /hpf Urine WBC (0-5) /hpf Ur Epithelial Cells (0-5) /hpf Urine Bacteria (FEW) /hpf Urine Mucus (FEW) /hpf Ketones 0.53 (0.0-0.3) mM SARS-CoV-2 RNA (SAVANNA) (NEGATIVE) 03/30/20 03/30/20 03/30/20 Range/Units 01:45 02:00 02:00 WBC (3.98-10.04) K/mm3 RBC (3.98-5.22) M/mm3 Hgb (11.2-15.7) gm/dl Hct (34.1-44.9) % MCV (79.4-94.8) fl MCH (25.6-32.2) pg MCHC (32.2-35.5) g/dl RDW Std Deviation (36.4-46.3) fL Plt Count (182-369) K/mm3 MPV (9.4-12.3) fl Neut % (Auto) (34.0-71.1) % Lymph % (Auto) (19.3-51.7) % Barren % (Auto) (4.7-12.5) % Eos % (Auto) (0.7-5.8) Baso % (Auto) (0.1-1.2) % Neut # (Auto) (1.56-6.13) K/mm3 Lymph # (Auto) (1.18-3.74) K/mm3 Barren # (Auto) (0.24-0.36) K/mm3 Eos # (Auto) (0.04-0.36) K/mm3 Baso # (Auto) (0.01-0.08) K/mm3 ESR (0-20) mm/hr PT (9.7-11.7) SECONDS INR APTT (22-31) SECONDS Sodium (136-145) mEq/L Potassium (3.5-5.1) mEq/L Chloride (98-107) mEq/L Carbon Dioxide (21-32) mEq/L Anion Gap (5-15) BUN (7-18) mg/dL Creatinine (0.55-1.02) mg/dL Est Cr Clr Drug Dosing mL/min Estimated GFR (MDRD) (>60) mL/min BUN/Creatinine Ratio (14-18) Glucose (80-115) mg/dL Hemoglobin A1c 11.40 H (4.50-6.20) % Calcium (8.5-10.1) mg/dL Magnesium (1.8-2.4) mg/dl Total Bilirubin (0.2-1.0) mg/dL AST (15-37) U/L ALT (14-59) U/L Alkaline Phosphatase (46-116) U/L CK-MB (CK-2) (0-3.6) ng/ml Troponin I (0.00-0.056) ng/mL C-Reactive Protein (<1.0) mg/dL NT-Pro-B Natriuret Pep (0-125) pg/mL Total Protein (6.4-8.2) g/dl Albumin (3.4-5.0) g/dl Globulin gm/dL Albumin/Globulin Ratio (1-2) Urine Color Yellow (Yellow) Urine Appearance Clear (Clear) Urine pH 5.0 (5.0-8.0) Ur Specific [place] 1.015 (1.005-1.030) Urine Protein Negative (Negative) Urine Glucose (UA) 3+ H (Negative) Urine Ketones Negative (Negative) Urine Occult Blood Negative (Negative) Urine Nitrite Negative (Negative) Urine Bilirubin Negative (Negative) Urine Urobilinogen 0.2 (0.2-1.0) Ur Leukocyte Esterase Negative (Negative) Urine RBC Not seen (0-5) /hpf Urine WBC 0-5 (0-5) /hpf Ur Epithelial Cells Not seen (0-5) /hpf Urine Bacteria Not seen (FEW) /hpf Urine Mucus Few (FEW) /hpf Ketones (0.0-0.3) mM SARS-CoV-2 RNA (SAVANNA) Negative (NEGATIVE) Meds: Medications Generic Name Dose Route Start Last Admin Trade Name Freq PRN Reason Stop Dose Admin Insulin Human Regular 100 unit 100 mls @ 5 mls/hr 03/30/20 02:45 03/30/20 03:20 / Sodium Chloride IV 5 unit/hr ASDIRECTED SHERYL 5 mls/hr Administration Protocol 5 UNIT/HR Sodium Chloride 1,000 mls @ 500 mls/hr 03/30/20 04:00 Normal Saline IV ASDIRECTED SHERYL Discontinued Medications Generic Name Dose Route Start Last Admin Trade Name Bryan PRN Reason Stop Dose Admin Hydromorphone HCl 0.5 mg 03/30/20 01:23 03/30/20 03:27 Dilaudid IVPUSH 03/30/20 01:24 Not Given ONETIME ONE Sodium Chloride 1,000 mls @ 100 mls/hr 03/30/20 01:30 03/30/20 01:44 Normal Saline IV 100 mls/hr ASDIRECTED SHERYL Administration Ondansetron HCl 4 mg 03/30/20 01:24 03/30/20 03:28 Zofran IVPUSH 03/30/20 01:25 Not Given ONETIME ONE - Radiology Interpretation Free Text/Narrative:: 69-year-old female presents to the ED per [facility] after a syncopal event at home. Patient remembers getting up from the couch and approaching the kitchen and then remembers waking up on the floor. She had obvious pain and deformity in her left ankle and pain in her right posterior leg and ankle. She was unable to get up from the floor. It is unclear who called the ambulance for her. Patient apparently has autonomic nervous system dysfunction from chronic type 1 diabetes for 50 years. She states she gets dizzy lightheaded and orthostatic quite frequently. Paramedics appreciated her blood sugar to be greater than 450 on their assessment. Her blood sugars are usually cold controlled well with an insulin pump. She reports highest blood sugar she obtained yesterday was 250. Patient is morbidly obese. She has bilateral severe peripheral neuropathy both lower extremities from diabetes. She has a history of coronary disease and peripheral vascular disease with claudication in both lower extremities. She has no palpable pulses in either dorsal foot. Patient is not in severe pain as one might appreciate. Her left ankle is currently splinted in a pillow splint by copy manager staff. It is unclear exactly when she fell but it was sometime after early midnight. Plan IV normal saline at 100 mils per hour. Blood sugar check with routine labs and serum ketones and glycosylated protein. COVID-19 screen it is appears she will need operative intervention to repair her left ankle for sure. Chest x-ray and ECG to be done. CT head will also be done although there is no overt signs of head trauma she m ay require an anesthetic in the near future. Given Dilaudid 0.5 mg IV with Zofran 4 mg IV for pain relief. - Re-Assessments/Exams Free Text/Narrative Re-Assessment/Exam: 03/30/20 02:43 labs reported her blood sugar to be elevated at 620. Her insulin pump will therefore be turned off. She will be started on insulin infusion at 5 units an hour. She will require a blood sugar check by lab every hour while on insulin infusion. Chest x-ray done portably reveals slightly tortuous thoracic aorta. Cardiac silhouette otherwise normal in size. Lung wolf reveal slightly prominent right pulmonary artery. Very mild diffuse vascular congestion per portable technique. Previous sternotomy wires appreciated. X- rays of the right tib-fib reveal a fracture with minimal displacement of the proximal shaft of the fibula. X-rays of the right ankle reveal an old avulsion fracture off the lateral malleolus without any new fractures identified. There is soft tissue swelling lateral ankle. X-rays of the left tib-fib reveal these severely comminuted fracture distal left fibula. X-rays of the ankle reveal a trimalleolar fracture with significant anterior displacement of the tibia on the talus anteriorly. CT of the head reveals prominent sulci and convexities compatible with the patient's age. There is also mild senescent changes in the ventricles with mild anterior and posterior horn encephalomalacia. There is an area of calcification versus blood in the left anterior cerebellar hemisphere. It is likely a calcified blood vessel. No evidence of CVA or intracranial hemorrhage otherwise appreciated. 03/30/20 02:54 Labs reveal a white blood cell count of 7.11. 70% neutrophils. Hemoglobin is 12.7 with hematocrit of 38.6. Platelet counts 225,000. PT is 10.6 with an INR of 0.99. PTT is 23. Sodium is low at 131. Potassium 4.8 chloride 97 with a bicarb of 27. Anion gap is 11.8. BUN is elevated at 34 with a creatinine of 1.7 and a GFR of 30 i.e. severe stage III renal insufficiency. BUN/creatinine ratio is 20.0. Glucose is elevated at 620. Hemoglobin A1c is elevated at 11.40 indicating uncontrolled type 1 diabetes. Calcium is 8.8 with a magnesium of 2.0. Liver function normal. Alk phos days is mildly elevated at 156. CK-MB is 0.8 with a troponin I of less than 0.017. C-reactive protein is 1.4. BNP is elevated slightly at 305. Total protein is 6.8 with an albumin fraction low at 2.7. Urinalysis reveals 3+ glucosuria. Negative leukocyte esterase. Micro is pending. Serum ketones slightly elevated at 0.53. 03/30/20 03:17 Due to her severe peripheral neuropathy were able to reduce the fractures and try and keep her ankle dorsiflexed at the toes to maintain pain better circulation to her foot. The fracture is highly unstable with the foot wanting to move laterally if you do not hold it in place. She did not require any anesthesia to reduce the fracture and splinted in a posterior Ortho-Glass splint and stirrup splint. Unfortunately the fiberglass hardened but quick and I was unable to mold it very well. Patient wishes to be transferred to [facility] in [place] where she has her records if there is a bed available. 03/30/20 03:30 Covid-19 is negative. 03/30/20 03:35: I have spoken with [place] [facility] through the [address] Butler--hospitalist has accepted care. Patient will be transferred to [facility] per ground ambulance. Her first blood sugar has been drawn by lab and I will adjust insulin drip based on the initial blood sugar change. I will increase her normal saline drip to 500 mils per hour as she will be easily volume overloaded due to renal insufficiency and propensity to congestive heart failure. She requires stabilization of her blood sugars before entertaining any form of open reduction and internal fixation of her left ankle. 03/30/20 04:08 Blood sugar 1 hour post insulin infusion start is 573. Insulin infusion will remain at 5 units an hour of regular insulin. IV fluids increased to 500 mils per hour during transfer to [place]. Departure - Departure Time of Disposition: 04:08 Disposition: DC/Tfer to Acute Hospital 02 Condition: Serious Clinical Impression: Syncope due to autonomic failure, Type 1 diabetes mellitus on insulin therapy, Peripheral vascular disease due to secondary diabetes, Peripheral neuropathy due to metabolic disorder, Chronic renal insufficiency, stage III (moderate), Ketosis due to diabetes Displaced trimalleolar fracture of left ankle Qualifiers: Encounter type: initial encounter Fracture type: closed Qualified Code(s): S82.852A - Displaced trimalleolar fracture of left lower leg, initial encounter for closed fracture Fracture of proximal end of right fibula Qualifiers: Encounter type: initial encounter Fracture type: closed Fracture morphology: other fracture Qualified Code(s): S82.831A - Other fracture of upper and lower end of right fibula, initial encounter for closed fracture Congestive heart failure Qualifiers: Heart failure type: diastolic Heart failure chronicity: unspecified Qualified Code(s): I50.30 - Unspecified diastolic (congestive) heart failure - Discharge Information *PRESCRIPTION DRUG MONITORING PROGRAM REVIEWED*: Not Applicable *COPY OF PRESCRIPTION DRUG MONITORING REPORT IN PATIENT BRANDY: Not Applicable Referrals: PCP,None [Primary Care Provider] - Forms: ED Department Discharge Sepsis Event Note (ED) - Evaluation Sepsis Screening Result: No Definite Risk - Focused Exam Vital Signs: Vital Signs Temp Pulse Resp BP Pulse Ox 03/30/20 01:12 36.1 C 64 16 149/54 H 97 - My Orders Last 24 Hours: My Active Orders 03/30/20 01:24 EKG Documentation Completion [RC] STAT Chest 1V Frontal [CR] Stat 03/30/20 01:25 Head wo Cont [CT] Stat 03/30/20 01:26 Oxygen Therapy [RC] ASDIRECTED 03/30/20 01:27 Tibia Fibula Lt [CR] Stat Tibia Fibula Rt [CR] Stat 03/30/20 01:28 Ankle Min 3V Lt [CR] Stat Ankle Min 3V Rt [CR] Stat 03/30/20 02:45 Insulin Regular, Human [HumuLIN R] 100 unit Sodium Chloride 0.9% [Normal Saline] 99 ml IV ASDIRECTED 03/30/20 03:30 GLUCOSE RANDOM [CHEM] Stat 03/30/20 04:00 Sodium Chloride 0.9% [Normal Saline] 1,000 ml IV ASDIRECTED - Assessment/Plan Last 24 Hours: My Active Orders 03/30/20 01:24 EKG Documentation Completion [RC] STAT Chest 1V Frontal [CR] Stat 03/30/20 01:25 Head wo Cont [CT] Stat 03/30/20 01:26 Oxygen Therapy [RC] ASDIRECTED 03/30/20 01:27 Tibia Fibula Lt [CR] Stat Tibia Fibula Rt [CR] Stat 03/30/20 01:28 Ankle Min 3V Lt [CR] Stat Ankle Min 3V Rt [CR] Stat 03/30/20 02:45 Insulin Regular, Human [HumuLIN R] 100 unit Sodium Chloride 0.9% [Normal Saline] 99 ml IV ASDIRECTED 03/30/20 03:30 GLUCOSE RANDOM [CHEM] Stat 03/30/20 04:00 Sodium Chloride 0.9% [Normal Saline] 1,000 ml IV ASDIRECTED
[2020-03-30] MEDS ORDERED: Sodium Chloride 0.9% 1,000 ML IV SCH ×2 (01:30→04:00)
[2020-03-30 02:41] LABS: HEMOGLOBIN A1C 11.4 % (4.50-6.20)
[2020-03-30 04:22] VITALS: BP 118/53; PULSE 65
--- NOTE | 2020-03-30 06:53 | CR ---
Chest: Frontal view of the chest was obtained. Comparison: Prior chest x-ray of 04/17/18. Heart size and mediastinum are normal. Previous sternotomy is noted. CABG is present. Lungs are clear with no acute parenchymal change. Bony structures are grossly intact. Impression: 1. Nothing acute is seen on frontal chest x-ray. Diagnostic code #2 This report was dictated in MDT
--- NOTE | 2020-03-30 06:53 | CR ---
Right ankle: 3 views of the right ankle were obtained. Comparison: No prior right ankle exam. Small bony density which is well corticated is identified off the inferior fibula which is compatible with old injury. Vascular calcification osteopenia is present. Fracture is felt to be present within the distal fibular diaphysis which is an oblique in alignment and shows no displacement. Ankle mortise is symmetric. No additional fracture or other bony abnormality is appreciated. Impression: 1. Distal fibular diaphyseal fracture remaining anatomic in alignment. 2. Other findings as noted above. No other acute abnormality is seen. Diagnostic code #3 This report was dictated in MDT
--- NOTE | 2020-03-30 06:53 | CR ---
Left tibia and fibula: AP and lateral views left tibia and fibula were obtained. Distal fibular diaphyseal fracture is partially visualized. No proximal fracture is seen within the tibia or fibula. Mild medial joint space narrowing is noted within the knee. Vascular calcification is noted. Single surgical clip is seen within the lower extremity. Impression: 1. Distal fibular diaphyseal fracture is partially visualized. 2. Other findings as noted above. No proximal acute abnormality is seen within the tibia or fibula. Diagnostic code #2 This report was dictated in MDT
--- NOTE | 2020-03-30 06:53 | CT ---
Head CT Technique: Multiple axial sections through the brain were obtained. Intravenous contrast was not utilized. Comparison: No prior intracranial imaging is available. Findings: Ventricles along with basal cisterns and sulci over the convexities are mildly prominent. No abnormal parenchymal densities are seen. No evidence of intracranial hemorrhage. No midline shift or mass-effect is appreciated. Atherosclerotic calcification is seen within the carotid siphon. Bone window settings were reviewed. No acute calvarial finding is appreciated. Visualized mastoid sinuses and visualized paranasal sinuses show nothing acute. Impression: 1. Mild generalized atrophy. 2. Nothing acute is appreciated on noncontrast noncontrast head CT exam. Diagnostic code #2 This report was dictated in MDT I agree with preliminary report issued by [facility] ([facility] report finalized on 03/30/20, 3:55 AM CDT)
--- NOTE | 2020-03-30 06:53 | CR ---
Left ankle: 3 views of the left ankle were obtained. Comparison: No prior left ankle study is available. Fracture is identified within the distal fibular diaphysis with angulation and displacement. Displaced and mildly comminuted medial malleolar fracture is noted. Tibia is shifted in a medial direction in relation of the talus. Mild degenerative change is noted within the midfoot. Plantar spur is present. Osteopenia is present. Impression: 1. Bimalleolar fracture with partial dislocation. 2. Osteopenia. Degenerative change within the midfoot. Diagnostic code #5 This report was dictated in MDT
--- NOTE | 2020-03-30 06:53 | CR ---
Right tibia and fibula: AP and lateral views of the right tibia and fibula were obtained. Proximal diaphyseal fracture is seen which is mildly comminuted and mildly displaced. Second fracture is identified within the distal fibular diaphysis which is only partially included on this study. Mild degenerative change is seen within the knee. Vascular calcification is noted. No other acute is otherwise seen. Impression: 1. Proximal and distal fibular diaphyseal fractures as noted above. 2. No other acute abnormality is seen within the proximal tibia or fibula. Diagnostic code #3 This report was dictated in MDT
== END 2020-03-30 04:10 ==
LOC: JD.ED 01:11
DX: S82.852A Displaced trimalleolar fracture of left lower leg, initial encounter for closed fracture (principal); S82.831A Other fracture of upper and lower end of right fibula, initial encounter for closed fracture; I50.30 Unspecified diastolic (congestive) heart failure; E10.22 Type 1 diabetes mellitus with diabetic chronic kidney disease; I12.9 Hypertensive chronic kidney disease with stage 1 through stage 4 chronic kidney disease, or unspecified chronic kidney disease; N18.3 Chronic kidney disease, stage 3 (moderate); E10.10 Type 1 diabetes mellitus with ketoacidosis without coma; R55 Syncope and collapse; I48.91 Unspecified atrial fibrillation; I25.10 Atherosclerotic heart disease of native coronary artery without angina pectoris; E78.00 Pure hypercholesterolemia, unspecified; I25.2 Old myocardial infarction; K21.9 Gastro-esophageal reflux disease without esophagitis; E03.9 Hypothyroidism, unspecified; F32.9 Major depressive disorder, single episode, unspecified; R06.02 Shortness of breath; Z20.828 Contact with and (suspected) exposure to other viral communicable diseases; Z88.1 Allergy status to other antibiotic agents; Z79.82 Long term (current) use of aspirin; Z79.899 Other long term (current) drug therapy; X58.XXXA Exposure to other specified factors, initial encounter; Z88.8 Allergy status to other drugs, medicaments and biological substances
CPT/HCPCS: 36415; 70450; 71045; 73590; 73610; 80053; 81001; 82009; 82553; 82947; 83036; 83735; 83880; 84484; 85025; 85610; 85652; 85730; 86140; 87641; 93005; 96360; 96361; 99285; J1815; J7030; J7050; U0002; 93010

== ENCOUNTER 2024-07-10 15:22 | Emergency (ER) | payer MEDICARE ==
[2024-07-10 16:07] LABS: BASOPHILS ABSOLUTE AUTO 0.1 K/mm3 (0.0-0.2); BASOPHILS PERCENT AUTO 0.8 % (0.0-1.0); EOSINOPHILS ABSOLUTE AUTO 0.3 K/mm3 (0.0-0.4); HEMATOCRIT 37.1 % (37.0-47.0); HEMOGLOBIN 11.7 gm/dl (12.0-16.0); IMMATURE GRAN ABSOLUTE AUTO 0.02 K/mm3 (0.00-0.05); IMMATURE GRAN PERCENT AUTO 0.3 % (0.0-0.4); LYMPHOCYTES ABSOLUTE AUTO 1.4 K/mm3 (1.0-4.8); LYMPHOCYTES PERCENT AUTO 19.8 % (24.0-44.0); MEAN CORPUSCULAR HEMOGLOBIN 29.7 pg (28.0-32.0); MEAN CORPUSCULAR HGB CONC 31.5 g/dl (32.0-36.0); MEAN CORPUSCULAR VOLUME 94.2 fl (83.0-99.0); MEAN PLATELET VOLUME 10.8 fl (9.4-12.3); MONOCYTES ABSOLUTE AUTO 0.5 K/mm3 (0.0-0.8); MONOCYTES PERCENT AUTO 7.3 % (0.0-8.0); NEUTROPHILS ABSOLUTE AUTO 4.9 K/mm3 (1.8-7.7); NEUTROPHILS PERCENT AUTO 67.8 % (41.0-71.0); PLATELET COUNT,PLT 235 K/mm3 (150-400); RED BLOOD CELL COUNT 3.94 M/mm3 (4.10-5.30); WHITE BLOOD CELL COUNT,WBC 7.17 K/mm3 (3.9-11.3)
[2024-07-10 16:36] LABS: A/G RATIO 0.6 (1-2); ALBUMIN 2.6 g/dl (3.4-5.0); ANION GAP 13.2 (5-15); BILIRUBIN TOTAL 0.2 mg/dL (0.2-1.0); CALCIUM 9.1 mg/dL (8.5-10.1); CREATININE 1.1 mg/dL (0.55-1.02); EST CRCL DRUG DOSING (CG) 45.95 mL/min; POTASSIUM,K 5.2 mEq/L (3.5-5.1); PROTEIN TOTAL,TP 6.8 g/dl (6.4-8.2)
[2024-07-10] MEDS: Ketorolac 15 MG/ML SDV IVPUSH ONE (17:14)
[2024-07-10] MEDS: Ketorolac 30 MG/ML SDV IM ONE (17:15)
[2024-07-10 18:28] VITALS: BP 165/89; PULSE 80
== END 2024-07-10 18:03 | disposition home or self-care (01) ==
LOC: JD.ED 15:22
DX: M79.605 Pain in left leg (principal); I25.10 Atherosclerotic heart disease of native coronary artery without angina pectoris; I25.2 Old myocardial infarction; I12.9 Hypertensive chronic kidney disease with stage 1 through stage 4 chronic kidney disease, or unspecified chronic kidney disease; N18.9 Chronic kidney disease, unspecified; E78.00 Pure hypercholesterolemia, unspecified; M19.90 Unspecified osteoarthritis, unspecified site; E10.42 Type 1 diabetes mellitus with diabetic polyneuropathy; E10.22 Type 1 diabetes mellitus with diabetic chronic kidney disease; E03.9 Hypothyroidism, unspecified; E66.9 Obesity, unspecified; Z90.89 Acquired absence of other organs; Z88.1 Allergy status to other antibiotic agents; Z88.8 Allergy status to other drugs, medicaments and biological substances; Z91.048 Other nonmedicinal substance allergy status; Z79.51 Long term (current) use of inhaled steroids; Z79.82 Long term (current) use of aspirin; Z79.4 Long term (current) use of insulin; Z79.890 Hormone replacement therapy; Z79.899 Other long term (current) drug therapy
CPT/HCPCS: 36415; 73502; 73562; 80053; 85025; 96374; 99284; J1885

== ENCOUNTER 2024-12-07 00:39 | Emergency (ER) | payer MEDICARE ==
[2024-12-07] MEDS: Glycerin Adult 2 GM Supp RECTAL ONE (02:10)
[2024-12-07] MEDS: Magnesium Citrate Solution 296 ML Bottle PO ONE (04:30)
[2024-12-07] MEDS ORDERED: Sodium Chloride 0.9% 10 ML Syringe FLUSH PRN (04:36)
[2024-12-07] MEDS ORDERED: Iopamidol 612 MG/ML 30 ML SDV IVPUSH ONE (04:39)
[2024-12-07] MEDS ORDERED: Iopamidol 612 MG/ML 100 ML Bottle IVPUSH ONE (04:39)
[2024-12-07 04:47] LABS: BASOPHILS ABSOLUTE AUTO 0.1 K/mm3 (0.0-0.2); BASOPHILS PERCENT AUTO 0.5 % (0.0-1.0); EOSINOPHILS ABSOLUTE AUTO 0.3 K/mm3 (0.0-0.4); EOSINOPHILS PERCENT AUTO 2.6 % (0.0-6.0); HEMATOCRIT 39.7 % (37.0-47.0); HEMOGLOBIN 12.9 gm/dl (12.0-16.0); IMMATURE GRAN ABSOLUTE AUTO 0.06 K/mm3 (0.00-0.05); IMMATURE GRAN PERCENT AUTO 0.5 % (0.0-0.4); LYMPHOCYTES ABSOLUTE AUTO 1.3 K/mm3 (1.0-4.8); LYMPHOCYTES PERCENT AUTO 10.5 % (24.0-44.0); MEAN CORPUSCULAR HEMOGLOBIN 29.9 pg (28.0-32.0); MEAN CORPUSCULAR HGB CONC 32.5 g/dl (32.0-36.0); MEAN CORPUSCULAR VOLUME 92.1 fl (83.0-99.0); MEAN PLATELET VOLUME 10.8 fl (9.4-12.3); MONOCYTES ABSOLUTE AUTO 0.8 K/mm3 (0.0-0.8); MONOCYTES PERCENT AUTO 6.2 % (0.0-8.0); NEUTROPHILS PERCENT AUTO 79.7 % (41.0-71.0); PLATELET COUNT,PLT 260 K/mm3 (150-400); RED BLOOD CELL COUNT 4.31 M/mm3 (4.10-5.30); WHITE BLOOD CELL COUNT,WBC 12.48 K/mm3 (3.9-11.3)
[2024-12-07 05:10] LABS: A/G RATIO 0.6 (1-2); ALBUMIN 2.9 g/dl (3.4-5.0); ANION GAP 14.5 (5-15); BILIRUBIN TOTAL 0.3 mg/dL (0.2-1.0); BUN/CREATININE RATIO 22.7 (14-18); CALCIUM 9.5 mg/dL (8.5-10.1); CREATININE 1.5 mg/dL (0.55-1.02); EST CRCL DRUG DOSING (CG) 34.91 mL/min; POTASSIUM,K 4.5 mEq/L (3.5-5.1); PROTEIN TOTAL,TP 7.5 g/dl (6.4-8.2)
[2024-12-07] MEDS: Sodium Chloride 0.9% 1,000 ML IV STA (05:24)
[2024-12-07] MEDS: Magnesium Hydroxide 400 MG/5 ML Susp 30 ML Cup PO ONE (07:38)
[2024-12-07 08:15] VITALS: BP 160/59; PULSE 95
== END 2024-12-07 07:40 | disposition home or self-care (01) ==
LOC: JD.ED 00:39
DX: K59.00 Constipation, unspecified (principal); E10.65 Type 1 diabetes mellitus with hyperglycemia; I25.10 Atherosclerotic heart disease of native coronary artery without angina pectoris; E78.00 Pure hypercholesterolemia, unspecified; I25.2 Old myocardial infarction; E10.22 Type 1 diabetes mellitus with diabetic chronic kidney disease; I12.9 Hypertensive chronic kidney disease with stage 1 through stage 4 chronic kidney disease, or unspecified chronic kidney disease; N18.9 Chronic kidney disease, unspecified; M19.90 Unspecified osteoarthritis, unspecified site; E10.42 Type 1 diabetes mellitus with diabetic polyneuropathy; E03.9 Hypothyroidism, unspecified; Z88.1 Allergy status to other antibiotic agents; Z88.8 Allergy status to other drugs, medicaments and biological substances; Z91.048 Other nonmedicinal substance allergy status; Z79.51 Long term (current) use of inhaled steroids; Z79.82 Long term (current) use of aspirin; Z79.4 Long term (current) use of insulin; Z79.890 Hormone replacement therapy; Z79.899 Other long term (current) drug therapy
CPT/HCPCS: 36415; 74018; 74176; 80053; 83690; 85025; 96360; 99284; A9270; J7030